=== PATIENT | female | born 2000 | race Caucasian/White ===

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

== ENCOUNTER 2021-03-08 17:59 | Emergency (ER) | payer OTHER, MEDICAID, SELFPAY ==
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
[2021-03-08 18:14] VITALS: BP 128/85; BP 174/84; PULSE 112; PULSE 120; RESP 18; TEMP 36.7; O2SAT 96; O2SAT 99; BMI 40.7
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
[2021-03-08] MEDS: Ketorolac Tromethamine 60 MG/2 ML VIAL IM (19:12)
[2021-03-08 20:35] VITALS: RESP 16
[2021-03-08 20:38] LABS: Appearance Urine CLEAR; Color Urine STRAW; Glucose Urine UA NEG (NEG); Leukocyte Esterase Urine NEG (NEG); Nitrite Urine NEG (NEG); PH 6.5 (5.0-8.0); Urine Blood NEG (NEG); Urine Ketones NEG (NEG); Urine Protein NEG (NEG-TRACE)
[2021-03-08 20:43] LABS: UPreg QC Valid YES; Urine Pregnancy NEGATIVE (NEGATIVE)
[2021-03-08 20:52] VITALS: BP 119/65; PULSE 90; RESP 18; TEMP 36.7; O2SAT 96
== END 2021-03-08 20:54 | disposition home or self-care (01) ==
PROVIDERS: Emergency Provider Emergency Medicine
DX: S39.012A Strain of muscle, fascia and tendon of lower back, initial encounter (principal); S16.1XXA Strain of muscle, fascia and tendon at neck level, initial encounter; M54.2 Cervicalgia; V43.52XA Car driver injured in collision with other type car in traffic accident, initial encounter; Y93.9 Activity, unspecified; Y92.410 Unspecified street and highway as the place of occurrence of the external cause; Y99.9 Unspecified external cause status; Z79.899 Other long term (current) drug therapy
CPT/HCPCS: 72040; 72100; 81003; 81025; 96372; 99284; J1885

== ENCOUNTER 2021-04-04 06:48 | Emergency (ER) | payer MEDICAID, SELFPAY ==
[2021-04-04 07:10] VITALS: BP 142/82; PULSE 102; RESP 18; TEMP 36.4; O2SAT 99; BMI 40.7
--- NOTE | 2021-04-04 08:05 | ED_ITS ---
HPI - URI/Sore Throat General Chief Complaint: General Medical Stated Complaint: flu like symptoms Time Seen by Provider: 04/04/21 08:02 Source: patient and spanish interpreter/translator Mode of arrival: ambulatory Limitations: no limitations History of Present Illness MD elicited complaint: other (had n/v/d over the weekend now lost her sense of taste and smell ) Pertinent past history: other (works at [employer] Onset (ago): day(s) (2) Consistency: constant and other (n/v/d resolved) Severity: mild Description of mucous: clear Able to tolerate fluids by mouth: Yes Exacerbating factors: nothing Relieving factors: nothing Context: sick contacts Associated symptoms: denies other symptoms Treatments prior to arrival: none Related Data Previous Rx's Medication Instructions Recorded cromolyn 4 % eye drops 1 drp OPHTHALMIC (EYE) QID #10 ml 10/18/20 naphazoline-hypromellose 0.03 1 drp OPHTHALMIC (EYE) QID PRN #15 10/18/20 %-0.5 % eye drops ml cyclobenzaprine 10 mg tablet 10 mg PO TID #10 tab 03/08/21 naproxen 500 mg tablet (Naprosyn) 500 mg PO BID #20 tab 03/08/21 ondansetron 4 mg disintegrating 4 mg PO Q8H PRN #20 tab 04/04/21 tablet Allergies Allergy/AdvReac Type Severity Reaction Status Date / Time bee pollen [BEE STINGS] Allergy Severe THROAT Unverified 02/19/20 19:26 CLOSES Review of Systems Review of Systems: Constitutional : No Fever, No Chills ENT/Mouth : No sore throat, No Rhinorrhea Eyes: No Eye Pain, No Swelling, No Redness Cardiovascular : No Chest Pain, No SOB Respiratory : No Cough, No Sputum, No Wheezing Gastrointestinal : No Nausea, No Vomiting, No Diarrhea (resolved) Genitourinary : No Dysuria, No Urinary Frequency, No Hematuria, Musculoskeletal : No joint pain, No Myalgias, No Joint Swelling Skin : No Skin Lesions, No rash Neuro : No Weakness, No Numbness, No Dizziness, No Headache PMFSH Past Medical History Attestation statement: The following information was validated with the patient. Medical History No known health problems Social History Social History (Updated 04/04/21 @ 08:54 by Margarette Arrington DO) Patient Tobacco Use Status: Never used Tobacco Use of substances other than those prescribed or required for medical reasons: No Advance Directives: No Physical Exam Vital Signs: Vital Signs: Last Vital Signs Temp 97.6 F 04/04/21 07:10 Pulse 102 H 04/04/21 07:10 Resp 18 04/04/21 07:10 BP 142/82 H 04/04/21 07:10 Pulse Ox 99 04/04/21 07:10 Body Mass Index 40.7 Appearance: Alert. Oriented X3. No acute distress. Eyes: Pupils equal, round and reactive to light. ENT: Pharynx normal. MMM Neck: Normal inspection. Neck supple. CVS: Normal heart rate and rhythm. Pulses normal. Respiratory: No respiratory distress. Breath sounds normal. Abdomen: Soft and nontender. Skin: Skin warm and dry. Normal skin color. Normal skin turgor. Extremities: No lower extremity edema. No calf ttp Neuro: Oriented X 3. No motor deficit. No sensory deficit. MDM - URI/Sore Throat MDM Narrative Medical decision making narrative: 20 yo female well hydrated here with resolved n/v/d over the weekend now lost her sense of taste and smell - has 2 vaccines but works at [employer] will test for COVID she looks well no signs of dehydration, clear lungs no other complaints at this time. Lab Data Labs: Lab Results 04/04/21 Range/Units 08:51 COVID-19 ([facility]) Negative (Negative) COVID-19 Clin Com See Note Discharge Plan Discharge Clinical Impression: Acute viral syndrome Patient Disposition: Home, Self-Care Instructions: Viral Syndrome (ED) Additional Instructions: return to ED for any worsening symptoms or concerns COVID NEGATIVE Prescriptions: New ondansetron 4 mg tablet,disintegrating 4 mg PO Q8H PRN (Reason: nausea and vomiting) Qty: 20 RF: 0 No Action naphazoline-hypromellose 0.03-0.5 % drops 1 drp ophthalmic (eye) QID PRN (Reason: eye irritation) Qty: 15 RF: 0 cromolyn 4 % drops 1 drp ophthalmic (eye) QID Qty: 10 RF: 0 cyclobenzaprine 10 mg tablet 10 mg PO TID Qty: 10 RF: 0 naproxen [Naprosyn] 500 mg tablet 500 mg PO BID Qty: 20 RF: 0 Stand Alone Forms: Work/School Release Print Language: Sri Lankan
[2021-04-04 09:11] LABS: COVID-19 Test Negative (Negative)
== END 2021-04-04 09:40 | disposition home or self-care (01) ==
PROVIDERS: Emergency Provider Emergency Medicine
DX: B34.9 Viral infection, unspecified (principal); Z20.822 Contact with and (suspected) exposure to COVID-19
CPT/HCPCS: 36415; 87635; 99283

== ENCOUNTER 2021-04-21 15:00 | Outpatient (RCR) | payer OTHER, MEDICAID, SELFPAY | END 2021-05-04 17:36 | disposition home or self-care (01) | LOC: HO.PT 15:00 | PROVIDERS: PCP Nurse Practitioner Family; Visit Provider Nurse Practitioner Family | DX: M62.838 Other muscle spasm (principal); M54.50 Low back pain, unspecified | CPT/HCPCS: 97110; 97140; 97161 ==

== ENCOUNTER 2021-05-12 15:37 | Emergency (ER) | payer MEDICAID, SELFPAY ==
[2021-05-12 16:31] VITALS: BP 160/88; PULSE 106; RESP 16; TEMP 36.4; O2SAT 98; BMI 40.7
--- NOTE | 2021-05-12 16:49 | ED.URI ---
HPI - URI/Sore Throat General Chief Complaint: Upper Respiratory Symptoms Stated Complaint: cough congestion Time Seen by Provider: 05/12/21 16:48 Source: patient and family Limitations: no limitations History of Present Illness HPI Narrative: Patient presents to the ER complaining of nasal congestion slight sore throat slight cough. Patient has been fully vaccinated for COVID-19 and has not had in the past. 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 Patient states she has company with her sister was also similar complaints. Patient denies tobacco history or history of diabetes or asthma. No recent travel history. Symptoms are [id number] slight cough is nonproductive. Worsening nasal congestion over the past 3 days. Related Data Previous Rx's Medication Instructions Recorded cromolyn 4 % eye drops 1 drp OPHTHALMIC (EYE) QID #10 ml 10/18/20 naphazoline-hypromellose 0.03 1 drp OPHTHALMIC (EYE) QID PRN #15 10/18/20 %-0.5 % eye drops ml cyclobenzaprine 10 mg tablet 10 mg PO TID #10 tab 03/08/21 naproxen 500 mg tablet (Naprosyn) 500 mg PO BID #20 tab 03/08/21 ondansetron 4 mg disintegrating 4 mg PO Q8H PRN #20 tab 04/04/21 tablet Allergies Allergy/AdvReac Type Severity Reaction Status Date / Time bee pollen [BEE STINGS] Allergy Severe THROAT Unverified 02/19/20 19:26 CLOSES Review of Systems Constitutional: Constitutional: Denies body ache(s), Denies chills, Denies fatigue, Denies fever(s) and Denies headache(s) Eyes: Eyes: Denies change in vision ENT: Denies headache(s), Reports nasal congestion, Reports nasal discharge and Reports sore throat Cardiovascular: Cardiovascular: Denies chest pain and Denies dyspnea Respiratory: Respiratory: Reports cough and Denies dyspnea Gastrointestinal: Gastrointestinal: Denies diarrhea, Denies nausea and Denies vomiting Musculoskeletal: Musculoskeletal: Denies back pain Neurologic: Denies headache(s) Endocrine: Endocrine: Denies fatigue PMFSH Past Medical History Attestation statement: The following information was validated with the patient. Medical History No known health problems Social History Social History Patient Tobacco Use Status: Never used Tobacco Advance Directives: No Advance Directives Information Provided: Yes Patient : No Physical Exam Vital Signs: Vital Signs: Last Vital Signs Temp 97.6 F 05/12/21 16:31 Pulse 106 H 05/12/21 16:31 Resp 16 05/12/21 16:31 BP 160/88 H 05/12/21 16:31 Pulse Ox 98 05/12/21 16:31 BMI result Body Mass Index 40.7 vital signs have been reviewed as normal and appeared to be correct. Blood pressure normal. Heart rate normal. Respiration rate normal. Temperature normal. Oxygen saturation normal. Appearance: Alert. Oriented X3. No acute distress. Head: Normal external exam. Normocephalic. Atraumatic. Eyes: PERRLA. EOMI. Conjunctiva and sclera normal. Eyelids normal. ENT: Pharynx normal. Uvula midline. Moist mucous membranes. No peritonsillar abscess Neck: Soft full range of motio CVS: Heart regular rate and rhythm no murmurs and rubs Respiratory: Breath sounds are clear to auscultation bilaterally. No accessory muscle use noted. Back: Full range of motion noted. Skin: Skin warm and dry. Normal skin color. No rashes ecchymosis noted Extremities: Moving all extremities patient is ambulatory Neuro: Oriented X 3. No motor deficit. No sensory deficit. Reflexes normal. Course Course Course Narrative: Viral URI COVID-19 Sinusitis Pharyngitis Vital signs are stable O2 sats 98% on room air COVID-19 swab obtained and pending 5:23 p.m. COVID-19 test is negative MDM - URI/Sore Throat Lab Data Labs: Lab Results 05/12/21 Range/Units 16:55 COVID-19 ([facility]) Negative (Negative) COVID-19 Clin Com See Note Discharge Plan Discharge Clinical Impression: Upper respiratory infection Patient Disposition: Home, Self-Care Instructions: Upper Respiratory Infection (ED) Additional Instructions: COVID-19 test is negative Increase fluids rest Return if symptoms worsen Prescriptions: No Action naphazoline-hypromellose 0.03-0.5 % drops 1 drp ophthalmic (eye) QID PRN (Reason: eye irritation) Qty: 15 RF: 0 cromolyn 4 % drops 1 drp ophthalmic (eye) QID Qty: 10 RF: 0 cyclobenzaprine 10 mg tablet 10 mg PO TID Qty: 10 RF: 0 naproxen [Naprosyn] 500 mg tablet 500 mg PO BID Qty: 20 RF: 0 ondansetron 4 mg tablet,disintegrating 4 mg PO Q8H PRN (Reason: nausea and vomiting) Qty: 20 RF: 0 Stand Alone Forms: Work/School Release
[2021-05-12 17:17] LABS: COVID-19 Test Negative (Negative)
== END 2021-05-12 18:05 | disposition home or self-care (01) ==
PROVIDERS: Physician Assistant; Emergency Provider Emergency Medicine
DX: J06.9 Acute upper respiratory infection, unspecified (principal); Z20.822 Contact with and (suspected) exposure to COVID-19
CPT/HCPCS: 36415; 87635; 99283

== ENCOUNTER 2021-08-01 07:44 | Emergency (ER) | payer MEDICAID, SELFPAY ==
[2021-08-01 07:48] VITALS: BP 118/85; PULSE 115; RESP 16; TEMP 36.9; O2SAT 98; BMI 40.7
--- NOTE | 2021-08-01 07:59 | ED_ITS ---
HPI - Abdominal Pain General Chief Complaint: Abdominal Pain Stated Complaint: abd pain Time Seen by Provider: 08/01/21 07:59 Source: patient and hourly sign language interpreter Mode of arrival: ambulatory Limitations: language barrier History of Present Illness HPI narrative: Patient is a 21 year old female presenting to the emergency department today with generalized body aches and nausea. Patient states that for the last 2 days, she has felt nauseous with generalized body aches. Patient states that her aunt has been sick but has now gotten better. Patient states that she is vaccinated against COVID-19. Patient denies any current dizziness, lightheadedness, abdominal pain, vomiting, fever, chills, blurry vision, double vision, loss of vision, chest pain, difficulty breathing, shortness of breath, back pain, night sweats, pain with urination, increased urinary frequency, increased urinary urgency, blood in her urine or stool, syncope or a near syncopal episode, recent trauma or falls, bowel incontinence, bladder incontinence, bowel retention, bladder retention, or any other complaints at this time. MD elicited complaint: other (feeling generally unwell) Pertinent past history: none Onset (ago): day(s) (2) Pain Consistency: intermittent Quality: dull Radiation: none Exacerbating factors: nothing Relieving factors: nothing Associated symptoms: nausea Related Data Previous Rx's Medication Instructions Recorded cromolyn 4 % eye drops 1 drp OPHTHALMIC (EYE) QID #10 ml 10/18/20 naphazoline-hypromellose 0.03 1 drp OPHTHALMIC (EYE) QID PRN #15 10/18/20 %-0.5 % eye drops ml cyclobenzaprine 10 mg tablet 10 mg PO TID #10 tab 03/08/21 naproxen 500 mg tablet (Naprosyn) 500 mg PO BID #20 tab 03/08/21 ondansetron 4 mg disintegrating 4 mg PO Q8H PRN #20 tab 04/04/21 tablet cephalexin 500 mg capsule 500 mg PO BID 7 Days #14 cap 08/01/21 Allergies Allergy/AdvReac Type Severity Reaction Status Date / Time bee pollen [BEE STINGS] Allergy Severe THROAT Unverified 02/19/20 19:26 CLOSES Review of Systems Constitutional: Reports no additional constitutional complaints, Reports body ache(s), Denies chills, Denies fever(s) and Denies night sweats Eyes: Reports no additional eye complaints, Denies blurry vision, Denies change in vision, Denies diplopia, Denies eye discharge, Denies loss of vision and Denies eye pain Denies dizziness Cardiovascular: Reports no additional cardiovascular complaints, Denies chest pain, Denies lightheadedness, Denies Loss of Consciousness and Denies dyspnea Respiratory: Reports no additional respiratory complaints and Denies dyspnea Gastrointestinal: Reports no additional gastrointestinal complaints, Denies abdominal pain, Denies melena, Denies hematochezia, Denies change in bowel habits, Denies change in stool character and Reports nausea Genitourinary: Denies hematuria, Denies urinary frequency, Denies dysuria, Denies urinary incontinence, Denies urinary hesitancy and Denies urinary urgency Musculoskeletal: Reports no additional musculoskeletal complaints, Denies numbness and Denies tingling Denies dizziness, Denies loss of vision, Denies numbness and Denies tingling Psychiatric: Reports no additional psychiatric complaints Endocrine: Reports no additional endocrine complaints Hematologic/Lymphatic: Reports no additional hematologic/lymphatic complaints Allergic/Immunologic: Reports no additional allergic/immunologic complaints PMFSH Past Medical History Attestation statement: The following information was validated with the patient. Source: old records reviewed Medical History No known health problems Social History Social History Patient Tobacco Use Status: Never used Tobacco Advance Directives: No Advance Directives Information Provided: Yes Physical Exam ED Vital Signs: Vital Signs - 24 hr 08/01/21 07:48 Temperature 98.4 F Pulse Rate 115 H Respiratory Rate 16 Blood Pressure 118/85 Pulse Oximetry 98 BMI result Body Mass Index 40.7 Const General: cooperative, no acute distress, alert and awake Nutritional Appearance: well nourished Orientation/consciousness: patient oriented x3 Limitations: no limitations HENMT Head: Yes normal to inspection and Yes atraumatic Ears: hearing grossly normal bilaterally and external ears normal General nose exam: Normal external nose present, no nasal discharge noted and no epistaxis Face and sinus: Yes normal facial exam, No abrasion and No laceration Mouth: Normal oral and palatal mucosa present, no drooling and no muffled voice Eyes General: appearance normal, both eyes and all related structures Periorbital: periorbital findings normal Eyelids: Yes eyelids normal Conjunctivae: conjunctivae normal Pupils: Equal, round and reactive pupils present EOM: EOMs intact bilaterally Neck Neck: Yes normal visual inspection, Yes full ROM and Yes no lymphadenopathy Chest Chest palpation & inspection: normal inspection of the chest Resp Effort & Inspection: normal respiratory effort and able to speak in complete sentences Auscultation: clear to auscultation bilaterally Cardio Rate: regular rate Rhythm: regular rhythm GI Inspection: Yes normal to inspection Neuro General: patient oriented x3 and moves all extremities Cranial nerves: Yes Equal, round and reactive pupils present Cognition (Neuro): normal cognition Motor exam (neuro): 5/5 motor strength present throughout Sensory Exam: Normal double simultaneous stimulation for sensation Coordination: [id number] test normal Extrem General: Yes normal to inspection, Yes full ROM and Yes capillary refill normal Psych Appearance: grossly normal Mental Status: mental status grossly normal Affect: normal affect Attitude: cooperative Thought process: Normal thought process present Thought content: Normal thought content present Insight: Good insight present (Psych) MDM - Abdominal Pain MDM Narrative Medical decision making narrative: Patient is a 21 year old female presenting to the emergency department today with generalized body aches and nausea. Patient's physical exam was unremarkable. Patient's blood work was unremarkable. Patient's urine showed a urinary tract infection. I explained my physical exam findings as well as all test results to the patient. I answered all questions asked by the patient. Patient received ODT Zofran which she stated helped her symptoms significantly. I stressed the importance of the patient taking her medication as prescribed. I stressed the importance of the patient following up with her primary care provider. I stressed the importance of the patient returning to the emergency department immediately if her symptoms were to worsen or if she were to develop any dizziness, shortness of breath, difficulty breathing, chest pain, blurry vision, loss of vision, nausea, vomiting, abdominal pain, fever, chills, back pain, or any other complaints. Patient verbalized agreement and understanding with this treatment plan and discharge. Differential Diagnosis Differential diagnosis narrative:: UTI, viral illness Medical Records Attestation: I reviewed the patient's medical records. Lab Data Attestation: I reviewed the patient's lab results. Result diagrams: 08/01/21 08:10 08/01/21 08:10 Labs: Lab Results 0208/01/21 08/01/21 Range/Units 08:10 08:10 08:10 WBC 5.2 (4.8-10.8) X10*3/uL RBC 4.71 (4.20-5.50) X10*6/uL Hgb 13.4 (12.0-16.0) g/dl Hct 41.3 (37.0-47.0) % MCV 87.7 (80.0-98.0) fL MCH 28.5 (27.0-33.0) pg MCHC 32.4 (31.0-35.0) g/dl RDW 12.7 (11.0-16.0) % Plt Count 362 (160-400) X10*3/uL MPV 9.2 L (9.4-12.3) fL Immature Gran % (Auto) 0.4 (0.0-0.4) % Neut % (Auto) 66.8 (45-73) % Lymph % (Auto) 23.5 (20-40) % [place] % (Auto) 8.3 (2-11) % Eos % (Auto) 0.8 (0-4) % Baso % (Auto) 0.2 (0-2) % Lymph # (Auto) 1.2 (1.2-4.9) X10*3/uL [place] # (Auto) 0.4 (0.1-1.2) X10*3/uL Eos # (Auto) 0.0 (0.0-0.4) X10*3/uL Baso # (Auto) 0.0 (0.0-0.2) X10*3/uL Abs Immat Gran (auto) 0.02 (0.00-0.03) X10*3/uL Absolute Neuts (auto) 3.4 (2.0-8.3) x10*3/uL Absolute Nucleated RBC 0.000 (0.0-0.012) X10*3/uL Nucleated RBC % (auto) 0.0 (0.0-0.2) /100WBC Sodium 137 (135-145) mmol/L Potassium 3.6 (3.3-5.1) mmol/L Chloride 105 (96-108) mmol/L Carbon Dioxide 22 (22-29) mmol/L Anion Gap 14 (12-20) BUN 9 (9-16) mg/dL Creatinine 0.77 (0.5-1.4) mg/dL Estim Creat Clear Calc 134.6 Estimated GFR > 60 Random Glucose 110 (60-115) mg/dL Calcium 9.4 (8.4-10.2) mg/dL Total Bilirubin 0.8 (0.0-1.0) mg/dL AST 16 (5-31) U/L ALT 35 H (0-31) U/L Alkaline Phosphatase 72 (39-117) U/L Total Protein 7.8 (6.5-8.0) g/dL Albumin 4.3 (3.5-5.0) g/dL Urine Color Urine Appearance Urine pH (5.0-8.0) Ur Specific [place] (1.005-1.025) Urine Protein (NEG-TRACE) MG/DL Urine Glucose (UA) (NEG) MG/DL Urine Ketones (NEG) MG/DL Urine Blood (NEG) Urine Nitrite (NEG) Ur Leukocyte Esterase (NEG) Urine RBC (0) /HPF Urine WBC (0-4) /HPF Ur Squamous Epith Cells /LPF Urine Bacteria /LPF Urine Test (NEGATIVE) COVID-19 ([place]) Negative (Negative) COVID-19 Clin Com See Note 08/01/21 08/01/21 Range/Units 08:26 08:26 WBC (4.8-10.8) X10*3/uL RBC (4.20-5.50) X10*6/uL Hgb (12.0-16.0) g/dl Hct (37.0-47.0) % MCV (80.0-98.0) fL MCH (27.0-33.0) pg MCHC (31.0-35.0) g/dl RDW (11.0-16.0) % Plt Count (160-400) X10*3/uL MPV (9.4-12.3) fL Immature Gran % (Auto) (0.0-0.4) % Neut % (Auto) (45-73) % Lymph % (Auto) (20-40) % [place] % (Auto) (2-11) % Eos % (Auto) (0-4) % Baso % (Auto) (0-2) % Lymph # (Auto) (1.2-4.9) X10*3/uL [place] # (Auto) (0.1-1.2) X10*3/uL Eos # (Auto) (0.0-0.4) X10*3/uL Baso # (Auto) (0.0-0.2) X10*3/uL Abs Immat Gran (auto) (0.00-0.03) X10*3/uL Absolute Neuts (auto) (2.0-8.3) x10*3/uL Absolute Nucleated RBC (0.0-0.012) X10*3/uL Nucleated RBC % (auto) (0.0-0.2) /100WBC Sodium (135-145) mmol/L Potassium (3.3-5.1) mmol/L Chloride (96-108) mmol/L Carbon Dioxide (22-29) mmol/L Anion Gap (12-20) BUN (9-16) mg/dL Creatinine (0.5-1.4) mg/dL Estim Creat Clear Calc Estimated GFR Random Glucose (60-115) mg/dL Calcium (8.4-10.2) mg/dL Total Bilirubin (0.0-1.0) mg/dL AST (5-31) U/L ALT (0-31) U/L Alkaline Phosphatase (39-117) U/L Total Protein (6.5-8.0) g/dL Albumin (3.5-5.0) g/dL Urine Color YELLOW Urine Appearance HAZY Urine pH 6.0 (5.0-8.0) Ur Specific [place] 1.025 (1.005-1.025) Urine Protein 1+ H (NEG-TRACE) MG/DL Urine Glucose (UA) NEG (NEG) MG/DL Urine Ketones 15 (NEG) MG/DL Urine Blood 3+ H (NEG) Urine Nitrite NEG (NEG) Ur Leukocyte Esterase TRACE H (NEG) Urine RBC 10-14 H (0) /HPF Urine WBC 1-4 (0-4) /HPF Ur Squamous Epith Cells 3+ /LPF Urine Bacteria TRACE /LPF Urine Test NEGATIVE (NEGATIVE) COVID-19 ([place]) (Negative) COVID-19 Clin Com Discharge Plan Discharge Clinical Impression: UTI (urinary tract infection) Patient Disposition: Home, Self-Care Instructions: Urinary Tract Infection in Women (DC) Additional Instructions: Follow up with your primary care provider. Return to the emergency department immediately if your symptoms worsen or if you develop any dizziness, shortness of breath, difficulty breathing, chest pain, blurry vision, loss of vision, nausea, vomiting, abdominal pain, fever, chills, back pain, or any other complaints. Prescriptions: New cephalexin 500 mg capsule 500 mg PO BID 7 Days Qty: 14 0RF No Action naphazoline-hypromellose 0.03-0.5 % drops 1 drp ophthalmic (eye) QID PRN (Reason: eye irritation) Qty: 15 0RF cromolyn 4 % drops 1 drp ophthalmic (eye) QID Qty: 10 0RF cyclobenzaprine 10 mg tablet 10 mg PO TID Qty: 10 0RF naproxen [Naprosyn] 500 mg tablet 500 mg PO BID Qty: 20 0RF ondansetron 4 mg tablet,disintegrating 4 mg PO Q8H PRN (Reason: nausea and vomiting) Qty: 20 0RF Stand Alone Forms: Work/School Release Print Language: Uzbek
[2021-08-01] MEDS: Ondansetron ODT 4 MG TAB.RAPDIS TRANSLINGU (08:13)
[2021-08-01 08:16] LABS: MANUAL DIFF FLAG NO
[2021-08-01 08:24] LABS: Basophils Percent Auto 0.2 % (0-2); Eosinophils Percent Auto 0.8 % (0-4); Hematocrit 41.3 % (37.0-47.0); Hemoglobin 13.4 g/dl (12.0-16.0); Imm Gran Abs Auto 0.02 X10*3/uL (0.00-0.03); Imm Gran Pct Auto 0.4 % (0.0-0.4); Lymphocytes Absolute Auto 1.2 X10*3/uL (1.2-4.9); Lymphocytes Percent Auto 23.5 % (20-40); Mean Corpuscular HGB Conc 32.4 g/dl (31.0-35.0); Mean Corpuscular Hemoglobin 28.5 pg (27.0-33.0); Mean Corpuscular Volume 87.7 fL (80.0-98.0); Mean Platelet Volume 9.2 fL (9.4-12.3); Monocytes Absolute Auto 0.4 X10*3/uL (0.1-1.2); Monocytes Percent Auto 8.3 % (2-11); Neutrophils Absolute Auto 3.4 x10*3/uL (2.0-8.3); Neutrophils Percent Auto 66.8 % (45-73); Platelet Count 362 X10*3/uL (160-400); Red Blood Count 4.71 X10*6/uL (4.20-5.50); Red Cell Distribution Width 12.7 % (11.0-16.0); White Blood Count 5.2 X10*3/uL (4.8-10.8)
[2021-08-01 08:32] LABS: Alanine Aminotransferase 35 U/L (0-31); Albumin Level 4.3 g/dL (3.5-5.0); Alkaline Phosphatase 72 U/L (39-117); Anion Gap 14 (12-20); Aspartate Amino Transferase 16 U/L (5-31); Bilirubin Total 0.8 mg/dL (0.0-1.0); Blood Urea Nitrogen 9 mg/dL (9-16); COVID-19 Test Negative (Negative); Calcium 9.4 mg/dL (8.4-10.2); Carbon Dioxide 22 mmol/L (22-29); Chloride 105 mmol/L (96-108); Creatinine Clr Calc Pharmacy 134.6; Estimated Glomerular Filt Rate > 60; Glucose Random 110 mg/dL (60-115); Potassium 3.6 mmol/L (3.3-5.1); Sodium 137 mmol/L (135-145); Total Protein 7.8 g/dL (6.5-8.0)
[2021-08-01 08:35] LABS: Appearance Urine HAZY; Color Urine YELLOW; Glucose Urine UA NEG (NEG); Leukocyte Esterase Urine TRACE (NEG); Nitrite Urine NEG (NEG); Specific Gravity - Urine 1.025 (1.005-1.025); UACC Culture Trigger YES; Urine Blood 3+ (NEG); Urine Ketones 15 MG/DL (NEG); Urine Protein 1+ MG/DL (NEG-TRACE)
[2021-08-01 08:37] LABS: UPreg QC Valid YES; Urine Pregnancy NEGATIVE (NEGATIVE)
[2021-08-01 08:46] LABS: Bacteria Urine TRACE /LPF; Squamous Epithelial Cell Urine 3+ /LPF
== END 2021-08-01 09:50 | disposition home or self-care (01) ==
PROVIDERS: Physician Assistant Medical; Emergency Provider Emergency Medicine
DX: N39.0 Urinary tract infection, site not specified (principal); Z20.822 Contact with and (suspected) exposure to COVID-19; M79.10 Myalgia, unspecified site; R11.0 Nausea
CPT/HCPCS: 36415; 80053; 81001; 81025; 85025; 87086; 87635; 99283

== ENCOUNTER 2021-10-03 09:36 | Emergency (ER) | payer MEDICAID, SELFPAY ==
--- NOTE | ~2021-10-03 | XR_ITS ---
EXAMINATION: XR CHEST CLINICAL INFORMATION: Chest pain, cough, back pain COMPARISON: None TECHNIQUE: 2 views of the chest were obtained. FINDINGS: No significant abnormality is noted involving the heart, lungs, mediastinum, bony thorax or soft tissues. XR/XR chest 2V IMPRESSION: Unremarkable examination.
[2021-10-03 10:02] VITALS: BP 127/78; PULSE 92; RESP 16; TEMP 36.6; O2SAT 100; BMI 38.0
--- NOTE | 2021-10-03 10:05 | ECG_ITS ---
Test Reason : cp Blood Pressure : / mmHG Vent. Rate : 087 BPM Atrial Rate : 087 BPM P-R Int : 134 ms QRS Dur : 078 ms QT Int : 354 ms P-R-T Axes : 008 012 -01 degrees QTc Int : 425 ms Normal sinus rhythm Poor R wave progression Abnormal ECG No previous ECGs available Referred By: Generic ED Physician Electronically Signed By:CATRINA JOSEPH MD
[2021-10-03 10:33] LABS: MANUAL DIFF FLAG NO
[2021-10-03 10:40] LABS: Basophils Percent Auto 0.1 % (0-2); Eosinophils Absolute Auto 0.1 X10*3/uL (0.0-0.4); Hemoglobin 12.4 g/dl (12.0-16.0); Imm Gran Abs Auto 0.04 X10*3/uL (0.00-0.03); Imm Gran Pct Auto 0.4 % (0.0-0.4); Lymphocytes Absolute Auto 2.2 X10*3/uL (1.2-4.9); Lymphocytes Percent Auto 20.7 % (20-40); Mean Corpuscular HGB Conc 32.6 g/dl (31.0-35.0); Mean Corpuscular Hemoglobin 28.4 pg (27.0-33.0); Mean Platelet Volume 9.2 fL (9.4-12.3); Monocytes Absolute Auto 0.4 X10*3/uL (0.1-1.2); Monocytes Percent Auto 4.1 % (2-11); Neutrophils Absolute Auto 7.7 x10*3/uL (2.0-8.3); Neutrophils Percent Auto 73.7 % (45-73); Platelet Count 385 X10*3/uL (160-400); Red Blood Count 4.37 X10*6/uL (4.20-5.50); Red Cell Distribution Width 13.2 % (11.0-16.0); White Blood Count 10.5 X10*3/uL (4.8-10.8)
[2021-10-03 10:57] LABS: Anion Gap 11 (12-20); Blood Urea Nitrogen 12 mg/dL (9-16); Calcium 9.8 mg/dL (8.4-10.2); Carbon Dioxide 24 mmol/L (22-29); Chloride 107 mmol/L (96-108); Creatinine Clr Calc Pharmacy 136.7; Estimated Glomerular Filt Rate > 60; Glucose Random 97 mg/dL (60-115); Influenza A Negative (Negative); Influenza B2 Negative (Negative); Potassium 4.4 mmol/L (3.3-5.1); Sodium 138 mmol/L (135-145)
[2021-10-03 11:00] LABS: Appearance Urine CLEAR; Color Urine YELLOW; Glucose Urine UA NEG (NEG); Leukocyte Esterase Urine NEG (NEG); Nitrite Urine NEG (NEG); PH 6.5 (5.0-8.0); Specific Gravity - Urine 1.015 (1.005-1.025); UACC Culture Trigger NO; UPreg QC Valid YES; Urine Blood 3+ (NEG); Urine Ketones NEG (NEG); Urine Pregnancy NEGATIVE (NEGATIVE); Urine Protein NEG (NEG-TRACE)
[2021-10-03 11:29] LABS: Squamous Epithelial Cell Urine 1+ /LPF
[2021-10-03 11:30] LABS: Bacteria Urine TRACE /LPF; WBC Urine 0 /HPF (0-4)
--- NOTE | 2021-10-03 16:01 | ED.GENADULT ---
HPI - General Adult General Chief complaint: Upper Respiratory Symptoms Stated complaint: chest and back pain Time Seen by Provider: 10/03/21 16:00 Source: patient and translator/interpreter Mode of arrival: ambulatory Limitations: no limitations History of Present Illness HPI narrative: 21 y/o female presents to the ER with 3 days of intermittent sharp, central chest pains and constant middle back pain. She reports this is associated with a mild dry cough. 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 She reports feeling like she was going to pass out, subsided quickly with rest. She was tested for COVID at work and was negative. She was sent to the ER for further evaluation. MD complaint: chest pain, back pain Onset (ago): day(s) (3) Location: chest and back Radiation: non-radiation Severity: moderate Severity scale (1-10): 5 Quality: sharp Pain Consistency: intermittent Relieving factors: rest Exacerbating factors: movement Associated symptoms: chest pain and cough Treatments prior to arrival: none Related Data Previous Rx's Medication Instructions Recorded cromolyn 4 % eye drops 1 drp OPHTHALMIC (EYE) QID #10 ml 10/18/20 naphazoline-hypromellose 0.03 1 drp OPHTHALMIC (EYE) QID PRN #15 10/18/20 %-0.5 % eye drops ml cyclobenzaprine 10 mg tablet 10 mg PO TID #10 tab 03/08/21 naproxen 500 mg tablet (Naprosyn) 500 mg PO BID #20 tab 03/08/21 ondansetron 4 mg disintegrating 4 mg PO Q8H PRN #20 tab 04/04/21 tablet cephalexin 500 mg capsule 500 mg PO BID 7 Days #14 cap 08/01/21 naproxen 500 mg tablet,delayed 500 mg PO BID PRN #14 tab 10/03/21 release Allergies Allergy/AdvReac Type Severity Reaction Status Date / Time bee pollen [BEE STINGS] Allergy Severe THROAT Unverified 02/19/20 19:26 CLOSES Review of Systems Review of Systems: Constitutional: No Fever, No Chills ENT/Mouth: No sore throat, No Rhinorrhea, No Swallowing Difficulty Eyes: No Eye Pain, No Swelling, No Redness Cardiovascular: + Chest Pain, No SOB, No Orthopnea, No Edema Respiratory: + Cough, No Sputum, No Wheezing, No dyspnea Gastrointestinal: No Nausea, No Vomiting, No Diarrhea, No abdominal Pain, No Hematochezia, No Melena Genitourinary: No Dysuria, No Urinary Frequency, No Hematuria Musculoskeletal: No joint pain, No Myalgias Skin: No Skin Lesions, No rash Neuro: No Weakness, No Numbness, + Dizziness, + Headache Psych: + Anxiety/Panic, No Depression Heme/Lymph: No Bruising, No Lymphadenopathy Endocrine: No Polyuria, No Polydipsia [facility] Past Medical History Medical History (Updated 10/03/21 @ 17:22 by QIAN White) Dysmenorrhea No known health problems Social History Social History Patient Tobacco Use Status: Never used Tobacco Advance Directives: No Advance Directives Information Provided: No Patient : No Physical Exam ED Vital Signs: Vital Signs - 24 hr 10/03/21 10:02 10/03/21 16:04 10/03/21 16:05 Temperature 98 F 98 F Pulse Rate 92 90 Respiratory Rate 16 18 Blood Pressure 127/78 103/59 L Pulse Oximetry 100 98 98 BMI result Body Mass Index 38.0 Appearance: Alert. Oriented X3. No acute distress. Eyes: Pupils equal, round and reactive to light. ENT: Pharynx normal. Neck: Normal inspection. Neck supple. CVS: Normal heart rate and rhythm. Pulses normal. Respiratory: No respiratory distress. Breath sounds normal. Abdomen: Soft and nontender. +BS x4 Skin: Skin warm and dry. Normal skin color. Normal skin turgor. No rashes. Extremities: No lower extremity edema. No calf tenderness. Neuro: Oriented X 3. No motor deficit. No sensory deficit. Course Course Course Narrative: 21 y/o female with no medical history presents to the ER with intermittent chest pains, back pain, and dry cough. VS are normal PERC negative. EKG with t-wave inversions in leads III and V1. Chest pain seems atypical but will add troponin and DDIMER to r/o PE. Will also check CXR. Reevaluation(s) Reevaluation #1: Workup is unremarkable. Troponin negative. DDIMER negative. CXR clear. Most likely musculoskeletal pain. Stable for d/c with NSAID PRN. Medical Decision Making Lab Data Result diagrams: 10/03/21 10:26 10/03/21 10:26 Labs: Lab Results 10/03/21 10/03/21 10/03/21 Range/Units 10:26 10: 10:26 WBC 10.5 (4.8-10.8) X10*3/uL RBC 4.37 (4.20-5.50) X10*6/uL Hgb 12.4 (12.0-16.0) g/dl Hct 38.0 (37.0-47.0) % MCV 87.0 (80.0-98.0) fL MCH 28.4 (27.0-33.0) pg MCHC 32.6 (31.0-35.0) g/dl RDW 13.2 (11.0-16.0) % Plt Count 385 (160-400) X10*3/uL MPV 9.2 L (9.4-12.3) fL Immature Gran % (Auto) 0.4 (0.0-0.4) % Neut % (Auto) 73.7 H (45-73) % Lymph % (Auto) 20.7 (20-40) % [place] % (Auto) 4.1 (2-11) % Eos % (Auto) 1.0 (0-4) % Baso % (Auto) 0.1 (0-2) % Lymph # (Auto) 2.2 (1.2-4.9) X10*3/uL [place] # (Auto) 0.4 (0.1-1.2) X10*3/uL Eos # (Auto) 0.1 (0.0-0.4) X10*3/uL Baso # (Auto) 0.0 (0.0-0.2) X10*3/uL Abs Immat Gran (auto) 0.04 H (0.00-0.03) X10*3/uL Absolute Neuts (auto) 7.7 (2.0-8.3) x10*3/uL Absolute Nucleated RBC 0.000 (0.0-0.012) X10*3/uL Nucleated RBC % (auto) 0.0 (0.0-0.2) /100WBC D-Dimer High Sensitivty NG/ML Sodium 138 (135-145) mmol/L Potassium 4.4 D (3.3-5.1) mmol/L Chloride 107 (96-108) mmol/L Carbon Dioxide 24 (22-29) mmol/L Anion Gap 11 L (12-20) BUN 12 (9-16) mg/dL Creatinine 0.73 (0.5-1.4) mg/dL Estim Creat Clear Calc 136.7 Estimated GFR > 60 Random Glucose 97 (60-115) mg/dL Calcium 9.8 (8.4-10.2) mg/dL Troponin I High Sens (<3.5-17.0) ng/L Urine Color Urine Appearance Urine pH (5.0-8.0) Ur Specific [place] (1.005-1.025) Urine Protein (NEG-TRACE) MG/DL Urine Glucose (UA) (NEG) MG/DL Urine Ketones (NEG) MG/DL Urine Blood (NEG) Urine Nitrite (NEG) Ur Leukocyte Esterase (NEG) Urine RBC (0) /HPF Urine WBC (0-4) /HPF Ur Squamous Epith Cells /LPF Urine Bacteria /LPF Urine Test (NEGATIVE) Influenza Type A (TORY) Negative (Negative) Influenza Type B (TORY) Negative (Negative) Influenza A & B Note See Note 10/03/21 10/03/21 10/03/21 Range/Units 10:26 10:26 10:26 WBC (4.8-10.8) X10*3/uL RBC (4.20-5.50) X10*6/uL Hgb (12.0-16.0) g/dl Hct (37.0-47.0) % MCV (80.0-98.0) fL MCH (27.0-33.0) pg MCHC (31.0-35.0) g/dl RDW (11.0-16.0) % Plt Count (160-400) X10*3/uL MPV (9.4-12.3) fL Immature Gran % (Auto) (0.0-0.4) % Neut % (Auto) (45-73) % Lymph % (Auto) (20-40) % [place] % (Auto) (2-11) % Eos % (Auto) (0-4) % Baso % (Auto) (0-2) % Lymph # (Auto) (1.2-4.9) X10*3/uL [place] # (Auto) (0.1-1.2) X10*3/uL Eos # (Auto) (0.0-0.4) X10*3/uL Baso # (Auto) (0.0-0.2) X10*3/uL Abs Immat Gran (auto) (0.00-0.03) X10*3/uL Absolute Neuts (auto) (2.0-8.3) x10*3/uL Absolute Nucleated RBC (0.0-0.012) X10*3/uL Nucleated RBC % (auto) (0.0-0.2) /100WBC D-Dimer High Sensitivty NG/ML Sodium (135-145) mmol/L Potassium (3.3-5.1) mmol/L Chloride (96-108) mmol/L Carbon Dioxide (22-29) mmol/L Anion Gap (12-20) BUN (9-16) mg/dL Creatinine (0.5-1.4) mg/dL Estim Creat Clear Calc Estimated GFR Random Glucose (60-115) mg/dL Calcium (8.4-10.2) mg/dL Troponin I High Sens < 3.5 (<3.5-17.0) ng/L Urine Color YELLOW Urine Appearance CLEAR Urine pH 6.5 (5.0-8.0) Ur Specific [place] 1.015 (1.005-1.025) Urine Protein NEG (NEG-TRACE) MG/DL Urine Glucose (UA) NEG (NEG) MG/DL Urine Ketones NEG (NEG) MG/DL Urine Blood 3+ H (NEG) Urine Nitrite NEG (NEG) Ur Leukocyte Esterase NEG (NEG) Urine RBC 15-29 H (0) /HPF Urine WBC 0 (0-4) /HPF Ur Squamous Epith Cells 1+ /LPF Urine Bacteria TRACE /LPF Urine Test NEGATIVE (NEGATIVE) Influenza Type A (TORY) (Negative) Influenza Type B (TORY) (Negative) Influenza A & B Note 10/03/21 Range/Units 16:38 WBC (4.8-10.8) X10*3/uL RBC (4.20-5.50) X10*6/uL Hgb (12.0-16.0) g/dl Hct (37.0-47.0) % MCV (80.0-98.0) fL MCH (27.0-33.0) pg MCHC (31.0-35.0) g/dl RDW (11.0-16.0) % Plt Count (160-400) X10*3/uL MPV (9.4-12.3) fL Immature Gran % (Auto) (0.0-0.4) % Neut % (Auto) (45-73) % Lymph % (Auto) (20-40) % [place] % (Auto) (2-11) % Eos % (Auto) (0-4) % Baso % (Auto) (0-2) % Lymph # (Auto) (1.2-4.9) X10*3/uL [place] # (Auto) (0.1-1.2) X10*3/uL Eos # (Auto) (0.0-0.4) X10*3/uL Baso # (Auto) (0.0-0.2) X10*3/uL Abs Immat Gran (auto) (0.00-0.03) X10*3/uL Absolute Neuts (auto) (2.0-8.3) x10*3/uL Absolute Nucleated RBC (0.0-0.012) X10*3/uL Nucleated RBC % (auto) (0.0-0.2) /100WBC D-Dimer High Sensitivty < 150 NG/ML Sodium (135-145) mmol/L Potassium (3.3-5.1) mmol/L Chloride (96-108) mmol/L Carbon Dioxide (22-29) mmol/L Anion Gap (12-20) BUN (9-16) mg/dL Creatinine (0.5-1.4) mg/dL Estim Creat Clear Calc Estimated GFR Random Glucose (60-115) mg/dL Calcium (8.4-10.2) mg/dL Troponin I High Sens (<3.5-17.0) ng/L Urine Color Urine Appearance Urine pH (5.0-8.0) Ur Specific [place] (1.005-1.025) Urine Protein (NEG-TRACE) MG/DL Urine Glucose (UA) (NEG) MG/DL Urine Ketones (NEG) MG/DL Urine Blood (NEG) Urine Nitrite (NEG) Ur Leukocyte Esterase (NEG) Urine RBC (0) /HPF Urine WBC (0-4) /HPF Ur Squamous Epith Cells /LPF Urine Bacteria /LPF Urine Test (NEGATIVE) Influenza Type A (TORY) (Negative) Influenza Type B (TORY) (Negative) Influenza A & B Note ECG Data Attestation: I personally reviewed and interpreted this ECG as follows: Prior ECG tracings: not available for review Interpretation: normal sinus rhythm, HR 87 bpm, T-wave inversions in leads III & V1. No ST segment elevations or depression Discharge Plan Discharge Clinical Impression: Atypical chest pain, Back pain Patient Disposition: Home, Self-Care Instructions: Back Pain (ED), Noncardiac Chest Pain (ED) Additional Instructions: Your lab workup today was normal. Your chest pain is not likely to be cardiac. Your chest x-ray was normal. You are negative for Influenza. Your pain is most likely muscular with possible viral illness given your cough. Recommend taking the prescribed medications as needed. Rest and stay hydrated. Follow up with your doctor as needed. If you develop new or worsening symptoms call 911 or come back to the ER for further evaluation. Prescriptions: New naproxen 500 mg tablet,delayed release (DR/EC) 500 mg PO BID PRN (Reason: pain) Qty: 14 0RF No Action naphazoline-hypromellose 0.03-0.5 % drops 1 drp ophthalmic (eye) QID PRN (Reason: eye irritation) Qty: 15 0RF cromolyn 4 % drops 1 drp ophthalmic (eye) QID Qty: 10 0RF cyclobenzaprine 10 mg tablet 10 mg PO TID Qty: 10 0RF naproxen [Naprosyn] 500 mg tablet 500 mg PO BID Qty: 20 0RF cephalexin 500 mg capsule 500 mg PO BID 7 Days Qty: 14 0RF ondansetron 4 mg tablet,disintegrating 4 mg PO Q8H PRN (Reason: nausea and vomiting) Qty: 20 0RF Stand Alone Forms: Work/School Release Print Language: Luxembourgish
[2021-10-03 16:04] VITALS: BP 103/59; PULSE 90; RESP 18; TEMP 36.6; O2SAT 98
[2021-10-03 16:05] VITALS: O2SAT 98
[2021-10-03 16:48] LABS: Troponin-I High Sensitivity < 3.5 ng/L (<3.5-17.0)
[2021-10-03 17:09] LABS: D Dimer High Sensitivity < 150 NG/ML
[2021-10-03 17:25] VITALS: BP 114/64; PULSE 74; RESP 18; TEMP 36.9; O2SAT 98
--- NOTE | 2021-10-03 17:25 | PC.NURSE ---
Pt alert and oriented x4, calm and cooperative. Pt states pain persists but has not worsened. Pt denies difficulty breathing. Pt ambultaing with steady gait. No IV in place. Vitals stable. Pt educated on dc by RN and stated an understanding.
== END 2021-10-03 17:29 | disposition home or self-care (01) ==
PROVIDERS: Physician Assistant; Emergency Provider Internal Medicine
DX: R07.89 Other chest pain (principal); R05.9 Cough, unspecified; M54.50 Low back pain, unspecified; Z79.899 Other long term (current) drug therapy; Z20.822 Contact with and (suspected) exposure to COVID-19
CPT/HCPCS: 36415; 71046; 80048; 81001; 81003; 81025; 84484; 85025; 85379; 87502; 93005; 99283; 99284

== ENCOUNTER 2022-09-30 22:14 | Emergency (ER) | payer MEDICAID, SELFPAY ==
[2022-09-30 22:23] VITALS: BP 144/85; PULSE 111; RESP 16; TEMP 36.9; O2SAT 97; BMI 40.7
[2022-09-30 22:39] VITALS: BP 122/85; PULSE 111; RESP 20; TEMP 36.8; O2SAT 98
--- NOTE | 2022-09-30 23:01 | ED.EYEPROB ---
HPI - Eye Problem General Chief complaint: Eye Problems Stated complaint: eye injury, blurry vision in left eye Time Seen by Provider: 09/30/22 22:48 Source: patient Mode of arrival: ambulatory Limitations: no limitations History of Present Illness HPI Narrative: Patient been having cold symptoms for last 2 -3 days and for the same time noticed watery discharge from both eyes with itching no pus discharge no fever no chills no injury to the eye no other family members sick Related Data Previous Rx's Medication Instructions Recorded cromolyn 4 % eye drops 1 drp ophthalmic (eye) QID #10 mL 10/18/20 naphazoline-hypromellose 0.03 1 drp ophthalmic (eye) QID PRN eye 10/18/20 %-0.5 % eye drops irritation #15 mL cyclobenzaprine 10 mg tablet 10 mg PO TID #10 tabs 03/08/21 naproxen 500 mg tablet (Naprosyn) 500 mg PO BID #20 tabs 03/08/21 ondansetron 4 mg disintegrating 4 mg PO Q8H PRN nausea and 04/04/21 tablet vomiting #20 tabs cephalexin 500 mg capsule 500 mg PO BID 7 days #14 caps 08/01/21 naproxen 500 mg tablet,delayed 500 mg PO BID PRN pain #14 tabs 10/03/21 release cetirizine 10 mg tablet (Zyrtec) 10 mg PO DAILY #14 tabs 09/30/22 olopatadine 0.1 % eye drops 1 drp ophthalmic (eye) BID #5 mL 09/30/22 (Pataday Twice Daily Relief) Allergies Allergy/AdvReac Type Severity Reaction Status Date / Time bee pollen [BEE STINGS] Allergy Severe THROAT Unverified 02/19/20 19:26 CLOSES Review of Systems Review of Systems: Yes all other systems are reviewed and are negative PMFSH Past Medical History Medical History Dysmenorrhea No known health problems Social History Social History Alcohol intake: never Patient Tobacco Use Status: Never used Tobacco Smoked in Last 30 Days: No Use of substances other than those prescribed or required for medical reasons: No Advance Directives: No Advance Directives Information Provided: No Physical Exam Vital Signs: Vital Signs: Last Vital Signs Temp 98.2 F 09/30/22 22:39 Pulse 111 H 09/30/22 22:39 Resp 20 09/30/22 22:39 BP 122/85 09/30/22 22:39 Pulse Ox 98 09/30/22 22:39 O2 Del Method Room Air 09/30/22 22:39 BMI result Body Mass Index 40.7 Appearance: Alert. Oriented X3. No acute distress. Eyes: Bilateral injected palpebral conjunctiva, watery discharge no exudate cornea normal anterior chamber normal ENT: Pharynx normal. Oral Mucosa moist clear rhinorrhea Neck: Normal inspection. Neck supple. CVS: Normal heart rate and rhythm. Pulses normal. Respiratory: No respiratory distress. Equal air entry bilateral, Abdomen: Soft and nontender. Bowel sounds are present, no mass palpable, no CVA tenderness Skin: Skin warm and dry. Normal skin color. Normal skin turgor. Neuro: Oriented X 3. Medications Administered Discontinued Medications Generic Name Dose Route Start Last Admin Trade Name Freq PRN Reason Stop Dose Admin Diphenhydramine HCl 50 mg 09/30/22 22:52 09/30/22 23:08 Diphenhydramine Hcl 25 Mg Capsule PO 09/30/22 22:53 50 mg ONCE ONE Administration Medical Decision Making Medical Decision Making MDM Narrative: Patient clinically with allergic conjunctivitis discharge patient home on Zyrtec and [place] eyedrops Discharge Plan Discharge Clinical Impression: Acute allergic conjunctivitis Patient Disposition: Home, Self-Care Instructions: Conjunctivitis (ED) Additional Instructions: Likely have allergic conjunctivitis Eyedrops as Advised Take Zyrtec 10 mg daily Prescriptions: New olopatadine [Pataday Twice Daily Relief] 0.1 % drops 1 drp ophthalmic (eye) BID Qty: 5 0RF Rx Instructions: separate doses by at least 6-8 hours cetirizine [Zyrtec] 10 mg tablet 10 mg PO DAILY Qty: 14 0RF No Action naphazoline-hypromellose 0.03-0.5 % drops 1 drp ophthalmic (eye) QID PRN (Reason: eye irritation) Qty: 15 0RF cromolyn 4 % drops 1 drp ophthalmic (eye) QID Qty: 10 0RF cyclobenzaprine 10 mg tablet 10 mg PO TID Qty: 10 0RF naproxen [Naprosyn] 500 mg tablet 500 mg PO BID Qty: 20 0RF cephalexin 500 mg capsule 500 mg PO BID 7 Days Qty: 14 0RF naproxen 500 mg tablet,delayed release (DR/EC) 500 mg PO BID PRN (Reason: pain) Qty: 14 0RF ondansetron 4 mg tablet,disintegrating 4 mg PO Q8H PRN (Reason: nausea and vomiting) Qty: 20 0RF Stand Alone Forms: Work/School Release Interventions: ED Discharge Assessment Last Done: 09/30/22 23:08 Discharge Date/Time: 09/30/22 23:10
[2022-09-30] MEDS: diphenhydrAMINE HCL 25 MG CAPSULE 50 MG PO (23:08)
== END 2022-09-30 23:10 | disposition home or self-care (01) ==
PROVIDERS: Emergency Provider Internal Medicine
DX: H10.13 Acute atopic conjunctivitis, bilateral (principal)
CPT/HCPCS: 99283; 99284

== ENCOUNTER 2022-10-06 23:57 | Emergency (ER) | payer MEDICAID, SELFPAY ==
[2022-10-06 23:59] VITALS: BP 142/82; PULSE 100; RESP 18; TEMP 36.8; O2SAT 98; BMI 42.5
--- NOTE | 2022-10-07 00:30 | ED.EYEPROB ---
HPI - Eye Problem General Chief complaint: Eye Problems Stated complaint: Right eye swollen Time Seen by Provider: 10/07/22 00:16 Source: patient Mode of arrival: ambulatory Limitations: no limitations History of Present Illness chief complaint: eye pain and eye redness Onset (ago): week(s) (1) Onset description: gradual Duration: intermittent Location: right eye Eye Symptoms: burning, redness, pain and discharge Mechanism: none Severity: moderate If Pain, Quality: burning Associated symptoms: none Treatments Prior to Arrival: other (Prescription eyedrops) Related Data Previous Rx's Medication Instructions Recorded cromolyn 4 % eye drops 1 drp ophthalmic (eye) QID #10 mL 10/18/20 naphazoline-hypromellose 0.03 1 drp ophthalmic (eye) QID PRN eye 10/18/20 %-0.5 % eye drops irritation #15 mL cyclobenzaprine 10 mg tablet 10 mg PO TID #10 tabs 03/08/21 naproxen 500 mg tablet (Naprosyn) 500 mg PO BID #20 tabs 03/08/21 ondansetron 4 mg disintegrating 4 mg PO Q8H PRN nausea and 04/04/21 tablet vomiting #20 tabs cephalexin 500 mg capsule 500 mg PO BID 7 days #14 caps 08/01/21 naproxen 500 mg tablet,delayed 500 mg PO BID PRN pain #14 tabs 10/03/21 release cetirizine 10 mg tablet (Zyrtec) 10 mg PO DAILY #14 tabs 09/30/22 olopatadine 0.1 % eye drops 1 drp ophthalmic (eye) BID #5 mL 09/30/22 (Pataday Twice Daily Relief) polymyxin B sulfate 10,000 1 drp ophthalmic (eye) QID 7 days 10/07/22 unit-trimethoprim 1 mg/mL eye #10 mL drops (Polytrim) Allergies Allergy/AdvReac Type Severity Reaction Status Date / Time bee pollen [BEE STINGS] Allergy Severe THROAT Unverified 02/19/20 19:26 CLOSES [facility] Past Medical History Medical History Dysmenorrhea No known health problems Social History Social History Alcohol intake: never Patient Tobacco Use Status: Never used Tobacco Advance Directives: No Advance Directives Information Provided: Yes Physical Exam Vital Signs: Vital Signs: Last Vital Signs Temp 98.3 F 10/06/22 23:59 Pulse 100 10/06/22 23:59 Resp 18 10/06/22 23:59 BP 142/82 H 10/06/22 23:59 Pulse Ox 98 10/06/22 23:59 O2 Del Method Room Air 10/06/22 23:59 BMI result Body Mass Index 42.5 GEN: Well developed, no acute distress, alert, oriented HEENT: Normocephalic, atraumatic, normal external ears, nose appears normal Eyes: Right conjunctival injection, tearing discharge, slight edematous changes to upper lower eyelids, no foreign body, no stye hordeolum or chalazion Neck: Supple, no lymphadenopathy Respiratory: Talks in complete sentences, no respiratory distress Extremities: No clubbing cyanosis or edema Neurologic: No focal neurologic deficits, cranial nerves 2-12 intact, gait normal Skin: No rash Course Course Course Narrative: Patient presents with acute and. This could certainly be bacterial or viral. She has been on allergy eyedrops which I do not believe would be helpful since it is unilateral. If the was allergic conjunctivitis I would suspect it would be bilateral. I will provide patient with prescription for Polytrim to take during the day and she continue the erythromycin ointment at night. I have referred Ophthalmology Medical Decision Making Medical Decision Making MDM Narrative: Conjunctiitis, bacterial v viral, add polytrim gtt during day, continue erythromycin at night Prescription Management I considered prescription management with: Antibiotic Discharge Plan Discharge Clinical Impression: Corneal abrasion Instructions: Corneal Abrasion (ED) Additional Instructions: Use polytrim during the day Use erythromycin ointment at night Prescriptions: New polymyxin B sulf-trimethoprim [Polytrim] 10,000 unit- 1 mg/mL drops 1 drp ophthalmic (eye) QID 7 Days Qty: 10 0RF Rx Instructions: while awake; do not exceed 6 doses in 24 hours No Action naphazoline-hypromellose 0.03-0.5 % drops 1 drp ophthalmic (eye) QID PRN (Reason: eye irritation) Qty: 15 0RF cromolyn 4 % drops 1 drp ophthalmic (eye) QID Qty: 10 0RF cyclobenzaprine 10 mg tablet 10 mg PO TID Qty: 10 0RF naproxen [Naprosyn] 500 mg tablet 500 mg PO BID Qty: 20 0RF cephalexin 500 mg capsule 500 mg PO BID 7 Days Qty: 14 0RF naproxen 500 mg tablet,delayed release (DR/EC) 500 mg PO BID PRN (Reason: pain) Qty: 14 0RF ondansetron 4 mg tablet,disintegrating 4 mg PO Q8H PRN (Reason: nausea and vomiting) Qty: 20 0RF olopatadine [Pataday Twice Daily Relief] 0.1 % drops 1 drp ophthalmic (eye) BID Qty: 5 0RF Rx Instructions: separate doses by at least 6-8 hours cetirizine [Zyrtec] 10 mg tablet 10 mg PO DAILY Qty: 14 0RF Referrals: Jorge Solano [Physician] - 5 days
== END 2022-10-07 00:37 | disposition home or self-care (01) ==
PROVIDERS: Emergency Provider Emergency Medicine
DX: H57.11 Ocular pain, right eye (principal); S05.01XD Injury of conjunctiva and corneal abrasion without foreign body, right eye, subsequent encounter; X58.XXXD Exposure to other specified factors, subsequent encounter
CPT/HCPCS: 99282; 99283

== ENCOUNTER 2023-01-31 09:24 | Outpatient (REF) | payer MEDICAID, SELFPAY ==
[2023-01-31 11:32] LABS: MANUAL DIFF FLAG NO
[2023-01-31 11:51] LABS: Basophils Percent Auto 0.3 % (0-2); Eosinophils Absolute Auto 0.1 X10*3/uL (0.0-0.4); Eosinophils Percent Auto 0.9 % (0-4); Hematocrit 38.5 % (37.0-47.0); Hemoglobin 12.3 g/dl (12.0-16.0); Imm Gran Abs Auto 0.04 X10*3/uL (0.00-0.03); Imm Gran Pct Auto 0.4 % (0.0-0.4); Lymphocytes Absolute Auto 2.1 X10*3/uL (1.2-4.9); Lymphocytes Percent Auto 21.9 % (20-40); Mean Corpuscular HGB Conc 31.9 g/dl (31.0-35.0); Mean Corpuscular Hemoglobin 28.5 pg (27.0-33.0); Mean Corpuscular Volume 89.3 fL (80.0-98.0); Mean Platelet Volume 9.4 fL (9.4-12.3); Monocytes Absolute Auto 0.4 X10*3/uL (0.1-1.2); Monocytes Percent Auto 4.4 % (2-11); Neutrophils Absolute Auto 6.9 x10*3/uL (2.0-8.3); Neutrophils Percent Auto 72.1 % (45-73); Platelet Count 442 X10*3/uL (160-400); Red Blood Count 4.31 X10*6/uL (4.20-5.50); White Blood Count 9.6 X10*3/uL (4.8-10.8)
[2023-01-31 12:13] LABS: Alanine Aminotransferase 22 U/L (0-31); Albumin Level 4.2 g/dL (3.5-5.0); Alkaline Phosphatase 70 U/L (39-117); Anion Gap 13 (12-20); Aspartate Amino Transferase 15 U/L (5-31); Bilirubin Total 0.4 mg/dL (0.0-1.0); Blood Urea Nitrogen 12 mg/dL (9-16); Calcium 9.3 mg/dL (8.4-10.2); Carbon Dioxide 26 mmol/L (22-29); Chloride 105 mmol/L (96-108); Cholesterol 164 mg/dL (<200); Estimated Glomerular Filt Rate > 60; Glucose Random 104 mg/dL (60-115); HDL Cholesterol 45 mg/dL (>40); LDL Cholesterol Calculated 110 mg/dL (<100); Potassium 4.2 mmol/L (3.3-5.1); Sodium 140 mmol/L (135-145); Total Protein 8.1 g/dL (6.5-8.0); Triglycerides 49 mg/dL (<150)
[2023-01-31 12:25] LABS: HBS Num1 3.46 mIU/mL (0-7.99); HBsAGNum1 0.35 S/CO (0.00-0.99); HIV AB/AG Nonreactive (Nonreactive); HIV Num 1 0.09 S/CO (0.00-0.99); Hepatitis B Surface Antigen Negative (Negative); ~HepC Num1 0.07 S/CO (0.00-0.79); ~Hepatitis B Surface Antibody NONREACTIVE (Nonreactive); ~Hepatitis C Antibody Nonreactive (Nonreactive)
[2023-01-31 12:45] LABS: Syphilis Screen Nonreactive (Nonreactive)
[2023-01-31 15:14] LABS: CT PCR NOT DETECTED (Not Detect.); NG PCR NOT DETECTED (Not Detect.)
[2023-02-02 23:18] LABS: TS Negative Control Passed; TS Panel A 0; TS Panel B 0; TS Positive Control Passed; TSpotTB Negative (Negative)
== END 2023-01-31 09:25 | disposition home or self-care (01) ==
LOC: HO.HHCL 09:24
PROVIDERS: Visit Provider Internal Medicine Geriatric Medicine
DX: Z00.00 Encounter for general adult medical examination without abnormal findings (principal); Z11.4 Encounter for screening for human immunodeficiency virus [HIV]; Z11.3 Encounter for screening for infections with a predominantly sexual mode of transmission; Z11.1 Encounter for screening for respiratory tuberculosis; Z13.1 Encounter for screening for diabetes mellitus; Z13.220 Encounter for screening for lipoid disorders
CPT/HCPCS: 0353U; 80053; 80061; 85025; 86481; 86706; 86780; 86803; 87340; 87389

== ENCOUNTER 2023-07-13 10:13 | Outpatient (REF) | payer MEDICAID, SELFPAY ==
[2023-07-13 12:12] LABS: HCG Quantitative 11110 mIU/mL
== END 2023-07-13 10:14 | disposition home or self-care (01) ==
LOC: HO.HHCL 10:13
PROVIDERS: Visit Provider Emergency Medicine
DX: Z34.90 Encounter for supervision of normal pregnancy, unspecified, unspecified trimester (principal)
CPT/HCPCS: 36415; 84702

== ENCOUNTER 2023-07-16 04:24 | Emergency (ER) | payer MEDICAID, SELFPAY ==
--- NOTE | ~2023-07-16 | US_ITS ---
EXAMINATION: US OBSTETRICAL ULTRASOUND CLINICAL INFORMATION: Vaginal bleeding. 6 weeks of . COMPARISON: None available. TECHNIQUE: Sonographic imaging of the pelvis is performed using transabdominal and transvaginal transducers. FINDINGS: On the transabdominal images, the anteflexed uterus measures approximately 8 x 3.7 x 3.7 cm (cervix to fundus x AP x transverse dimension). The myometrial echotexture is normal. No uterine mass. The cervix is approximately 2.8 cm in length and has a 0.5 cm nabothian cyst. Within the endometrium, there is a well-formed gestational sac with surrounding decidual reaction. pole has a crown-rump length of 0.47 cm (6 weeks, 2 days). Estimated date of delivery of 03/08/2014. heart rate is 118 bpm. 0.4 cm yolk sac is present. No evidence of subchorionic hemorrhage. The right ovary is 4 x 2 x 2.2 cm and left ovary 2.6 x 1.5 x 1.9 cm. Color Doppler images with spectral waveforms show presence of normal arterial and venous flow within the ovaries. Negligible free fluid within the cul-de-sac. US/US OB pelvic and transvaginal IMPRESSION: * Single viable intrauterine gestation. The AUA is 6 weeks, 2 days and estimated date of delivery 03/08/2024. * No evidence of subchorionic hemorrhage. * The ovaries are normal.
--- NOTE | 2023-07-16 04:31 | ED_ITS ---
HPI - Female Genitourinary General Chief complaint: OB Stated complaint: vaginal bleeding Time Seen by Provider: 07/16/23 04:30 Source: patient Mode of arrival: ambulatory Limitations: no limitations History of Present Illness HPI Narrative: Patient is 6 weeks primi was doing okay for last 6 weeks woke up from sleep tonight with lower abdominal cramping went to the bathroom noticed small amount of bright red blood no blood clot no urinary complaints no fever or chills Related Data Previous Rx's Medication Instructions Recorded cromolyn 4 % eye drops 1 drp ophthalmic (eye) QID #10 mL 10/18/20 naphazoline-hypromellose 0.03 1 drp ophthalmic (eye) QID PRN eye 10/18/20 %-0.5 % eye drops irritation #15 mL cyclobenzaprine 10 mg tablet 10 mg PO TID #10 tabs 03/08/21 naproxen 500 mg tablet (Naprosyn) 500 mg PO BID #20 tabs 03/08/21 ondansetron 4 mg disintegrating 4 mg PO Q8H PRN nausea and 04/04/21 tablet vomiting #20 tabs cephalexin 500 mg capsule 500 mg PO BID 7 days #14 caps 08/01/21 naproxen 500 mg tablet,delayed 500 mg PO BID PRN pain #14 tabs 10/03/21 release cetirizine 10 mg tablet (Zyrtec) 10 mg PO DAILY #14 tabs 09/30/22 olopatadine 0.1 % eye drops 1 drp ophthalmic (eye) BID #5 mL 09/30/22 (Pataday Twice Daily Relief) polymyxin B sulfate 10,000 1 drp ophthalmic (eye) QID 7 days 10/07/22 unit-trimethoprim 1 mg/mL eye #10 mL drops (Polytrim) Allergies Allergy/AdvReac Type Severity Reaction Status Date / Time bee pollen [BEE STINGS] Allergy Severe THROAT Unverified 02/19/20 19:26 CLOSES Review of Systems 2 Review of Systems: Yes all other systems are reviewed and are negative PMFSH Past Medical History Medical History Dysmenorrhea No known health problems Social History Social History Alcohol intake: never Patient Tobacco Use Status: Never used Tobacco Advance Directives: No Advance Directives Information Provided: No Physical Exam 2 Vital Signs: Vital Signs: Last Vital Signs Temp 98.3 F 07/16/23 04:33 Pulse 111 H 07/16/23 04:33 Resp 16 07/16/23 04:33 BP 127/70 07/16/23 04:33 Pulse Ox 98 07/16/23 04:33 O2 Del Method Room Air 07/16/23 04:33 BMI result Body Mass Index 42.6 Appearance: Alert. Oriented X3. No acute distress. Eyes: No pallor or icterus ENT: Pharynx normal. Oral Mucosa moist Neck: Normal inspection. Neck supple. CVS: Normal heart rate and rhythm. Pulses normal. Respiratory: No respiratory distress. Equal air entry bilateral, no wheezing/rales/rhonchi Abdomen: Soft mild suprapubic discomfort Bowel sounds are present, Skin: Skin warm and dry. Normal skin color. Normal skin turgor. Extremities: No lower extremity edema. No calf tenderness Neuro: Oriented X 3. Medical Decision Making Medical Decision Making [facility] Narrative: Patient with IUP 6 weeks 2 days heart tone 118 beats per minute no significant bleeding and vaginal will discharge patient home Differential Diagnosis Differential Diagnoses: The differential diagnosis associated with the presentation includes Miscarriage/ectopic Lab Data [facility] Lab Attestation statement: I reviewed the patient's lab results. 07/16/23 04:50 07/16/23 04:50 Labs: Lab Results 07/16/23 Range/Units 04:50 WBC 14.7 H (4.8-10.8) X10*3/uL RBC 4.26 (4.20-5.50) X10*6/uL Hgb 12.5 (12.0-16.0) g/dl Hct 37.2 (37.0-47.0) % MCV 87.3 (80.0-98.0) fL MCH 29.3 (27.0-33.0) pg MCHC 33.6 (31.0-35.0) g/dl RDW 13.6 (11.0-16.0) % Plt Count 401 H (160-400) X10*3/uL MPV 9.1 L (9.4-12.3) fL Immature Gran % (Auto) 0.4 (0.0-0.4) % Neut % (Auto) 79.6 H (45-73) % Lymph % (Auto) 14.8 L (20-40) % [place] % (Auto) 4.4 (2-11) % Eos % (Auto) 0.5 (0-4) % Baso % (Auto) 0.3 (0-2) % Lymph # (Auto) 2.2 (1.2-4.9) X10*3/uL [place] # (Auto) 0.7 (0.1-1.2) X10*3/uL Eos # (Auto) 0.1 (0.0-0.4) X10*3/uL Baso # (Auto) 0.0 (0.0-0.2) X10*3/uL Abs Immat Gran (auto) 0.06 H (0.00-0.03) X10*3/uL Absolute Neuts (auto) 11.7 H (2.0-8.3) x10*3/uL Absolute Nucleated RBC 0.000 (0.0-0.012) X10*3/uL Nucleated RBC % (auto) 0.0 (0.0-0.2) /100WBC Sodium 140 (135-145) mmol/L Potassium 4.5 (3.3-5.1) mmol/L Chloride 109 H (96-108) mmol/L Carbon Dioxide 21 L (22-29) mmol/L Anion Gap 15 (12-20) BUN 12 (9-16) mg/dL Creatinine 0.76 (0.5-1.4) mg/dL Estim Creat Clear Calc 137.6 Estimated GFR > 60 Random Glucose 132 H (60-115) mg/dL Calcium 8.9 (8.4-10.2) mg/dL Beta HCG, Quant 89986 mIU/mL Blood Type B Positive Discharge Plan Discharge Clinical Impression: Threatened Patient Disposition: Home, Self-Care Instructions: Threatened Miscarriage (ED) Additional Instructions: Your blood type is B positive At this time there is no evidence of miscarriage Follow-up with OBG Report to the ER if worsening of pain/bleeding Prescriptions: No Action naphazoline-hypromellose 0.03-0.5 % drops 1 drp ophthalmic (eye) QID PRN (Reason: eye irritation) Qty: 15 0RF cromolyn 4 % drops 1 drp ophthalmic (eye) QID Qty: 10 0RF cyclobenzaprine 10 mg tablet 10 mg PO TID Qty: 10 0RF naproxen [Naprosyn] 500 mg tablet 500 mg PO BID Qty: 20 0RF cephalexin 500 mg capsule 500 mg PO BID 7 Days Qty: 14 0RF naproxen 500 mg tablet,delayed release (DR/EC) 500 mg PO BID PRN (Reason: pain) Qty: 14 0RF ondansetron 4 mg tablet,disintegrating 4 mg PO Q8H PRN (Reason: nausea and vomiting) Qty: 20 0RF olopatadine [Pataday Twice Daily Relief] 0.1 % drops 1 drp ophthalmic (eye) BID Qty: 5 0RF Rx Instructions: separate doses by at least 6-8 hours cetirizine [Zyrtec] 10 mg tablet 10 mg PO DAILY Qty: 14 0RF polymyxin B sulf-trimethoprim [Polytrim] 10,000 unit- 1 mg/mL drops 1 drp ophthalmic (eye) QID 7 Days Qty: 10 0RF Rx Instructions: while awake; do not exceed 6 doses in 24 hours
[2023-07-16 04:33] VITALS: BP 127/70; PULSE 111; RESP 16; TEMP 36.8; O2SAT 98; BMI 42.6
[2023-07-16 04:56] LABS: Basophils Percent Auto 0.3 % (0-2); Eosinophils Absolute Auto 0.1 X10*3/uL (0.0-0.4); Eosinophils Percent Auto 0.5 % (0-4); Hematocrit 37.2 % (37.0-47.0); Hemoglobin 12.5 g/dl (12.0-16.0); Imm Gran Abs Auto 0.06 X10*3/uL (0.00-0.03); Imm Gran Pct Auto 0.4 % (0.0-0.4); Lymphocytes Absolute Auto 2.2 X10*3/uL (1.2-4.9); Lymphocytes Percent Auto 14.8 % (20-40); MANUAL DIFF FLAG NO; Mean Corpuscular HGB Conc 33.6 g/dl (31.0-35.0); Mean Corpuscular Hemoglobin 29.3 pg (27.0-33.0); Mean Corpuscular Volume 87.3 fL (80.0-98.0); Mean Platelet Volume 9.1 fL (9.4-12.3); Monocytes Absolute Auto 0.7 X10*3/uL (0.1-1.2); Monocytes Percent Auto 4.4 % (2-11); Neutrophils Absolute Auto 11.7 x10*3/uL (2.0-8.3); Neutrophils Percent Auto 79.6 % (45-73); Platelet Count 401 X10*3/uL (160-400); Red Blood Count 4.26 X10*6/uL (4.20-5.50); Red Cell Distribution Width 13.6 % (11.0-16.0); White Blood Count 14.7 X10*3/uL (4.8-10.8)
[2023-07-16 05:14] LABS: Anion Gap 15 (12-20); Blood Urea Nitrogen 12 mg/dL (9-16); Calcium 8.9 mg/dL (8.4-10.2); Carbon Dioxide 21 mmol/L (22-29); Chloride 109 mmol/L (96-108); Creatinine Clr Calc Pharmacy 137.6; Estimated Glomerular Filt Rate > 60; Glucose Random 132 mg/dL (60-115); Potassium 4.5 mmol/L (3.3-5.1); Sodium 140 mmol/L (135-145)
[2023-07-16 05:35] LABS: HCG Quantitative 22911 mIU/mL
== END 2023-07-16 09:00 | disposition home or self-care (01) ==
PROVIDERS: Internal Medicine; Emergency Provider Emergency Medicine
DX: O20.0 Threatened abortion (principal); R10.2 Pelvic and perineal pain; Z79.899 Other long term (current) drug therapy; Z3A.01 Less than 8 weeks gestation of pregnancy
CPT/HCPCS: 36415; 76801; 76817; 80048; 84702; 85025; 86900; 86901; 99283; 99284

== ENCOUNTER 2024-02-20 19:58 | Emergency (ER) | payer MEDICAID, SELFPAY ==
--- NOTE | 2024-02-20 20:05 | ECG_ITS ---
Test Reason : CHEST PAIN Blood Pressure : / mmHG Vent. Rate : 095 BPM Atrial Rate : 095 BPM P-R Int : 140 ms QRS Dur : 084 ms QT Int : 348 ms P-R-T Axes : 014 022 015 degrees QTc Int : 437 ms Normal sinus rhythm Normal ECG When compared with ECG of 03-OCT-2021 10:14, No significant change was found Referred By: Rhea Jimenez Electronically Signed By:RADHA ALONSO
[2024-02-20 20:09] VITALS: BP 139/88; PULSE 99; RESP 20; TEMP 37.2; O2SAT 99; BMI 42.5
--- NOTE | 2024-02-20 20:09 | ED_ITS ---
HPI - General Adult General Chief complaint: OB Stated complaint: chest pain/headache/high blood pressure Time Seen by Provider: 02/20/24 20:31 Source: patient Mode of arrival: ambulatory Limitations: no limitations History of Present Illness ED Provider: Dr. Debbie Faustin HPI narrative: patient comes to the emergency room complaining of high blood pressure. patient is a at 37 weeks of gestational age. Patient states that she will be induced 1 week prior to her due date due to gestational diabetes and also due to blood pressure issues. Patient states that she has been having high blood pressure intermittently, not on any BP meds. Patient states that earlier today she had a headache and has been present since then. Patient states that earlier today her blood pressure at home was 160s systolic. Patient has checked it several times. Besides headache, patient also reporting chest pressure. Patient denies abdominal pain, no vaginal bleeding. Related Data Previous Rx's ?Medication ?Instructions ?Recorded cromolyn 4 % eye drops 1 drp ophthalmic (eye) QID #10 mL 10/18/20 naphazoline-hypromellose 0.03 1 drp ophthalmic (eye) QID PRN eye 10/18/20 %-0.5 % eye drops irritation #15 mL cyclobenzaprine 10 mg tablet 10 mg PO TID #10 tabs 03/08/21 naproxen 500 mg tablet (Naprosyn) 500 mg PO BID #20 tabs 03/08/21 ondansetron 4 mg disintegrating 4 mg PO Q8H PRN nausea and 04/04/21 tablet vomiting #20 tabs cephalexin 500 mg capsule 500 mg PO BID 7 days #14 caps 08/01/21 naproxen 500 mg tablet,delayed 500 mg PO BID PRN pain #14 tabs 10/03/21 release cetirizine 10 mg tablet (Zyrtec) 10 mg PO DAILY #14 tabs 09/30/22 olopatadine 0.1 % eye drops 1 drp ophthalmic (eye) BID #5 mL 09/30/22 (Pataday Twice Daily Relief) polymyxin B sulfate 10,000 1 drp ophthalmic (eye) QID 7 days 10/07/22 unit-trimethoprim 1 mg/mL eye #10 mL drops (Polytrim) Allergies Allergy/AdvReac Type Severity Reaction Status Date / Time bee pollen [BEE STINGS] Allergy Severe THROAT Verified 02/20/24 20:12 CLOSES Review of Systems 2 Review of Systems: Constitutional : No Weight loss, No Fever, No Chills, No Night Sweats, No Fatigue, No Malaise ENT/Mouth : No Hearing loss, No Ear Pain, No Nasal Congestion, No Sinus Pain, No Hoarseness, No sore throat, No Rhinorrhea, No Swallowing Difficulty Eyes: No Eye Pain, No Swelling, No Redness, No Foreign Body, No Discharge, No Vision Changes Cardiovascular : Complaining of chest pressure,No Chest Pain, No SOB, No Dyspnea on Exertion, No Orthopnea, No Edema, No Palpitations , complaining of intermittently high blood pressure. Respiratory : No Cough, No Sputum, No Wheezing, No Smoke Exposure, No Dyspnea Gastrointestinal : No Nausea, No Vomiting, No Diarrhea, No Constipation, No abdominal Pain, No Hematochezia, No Melena Genitourinary : no vaginal bleeding, reports good movement, No Dysuria, No Urinary Frequency, No Hematuria, No Urinary Incontinence, No Urgency, No Flank Pain, No Urinary Flow Changes, No Hesitancy Musculoskeletal : No joint pain, No Myalgias, No Joint Swelling Skin : No Skin Lesions, No rash Neuro : No Weakness, No Numbness, No Paresthesias, No Loss of Consciousness, No Dizziness, complaining of Headache Psych : No Anxiety/Panic, No Depression, No SI/HI/AH/VH, No Social Issues, Heme/Lymph: No Bruising, No Bleeding,No Lymphadenopathy Endocrine : No Polyuria, No Polydipsia, No Temperature Intolerance PMFSH Past Medical History Medical History Preeclampsia Dysmenorrhea No known health problems Social History Social History Alcohol intake: never Patient Tobacco Use Status: Never used Tobacco Advance Directives: No Advance Directives Information Provided: No Physical Exam ED Vital Signs: Vital Signs - 24 hr 02/20/24 20:09 02/20/24 20:37 02/20/24 21:00 Temperature 98.9 F 97.8 F Pulse Rate 99 108 H 99 Respiratory Rate 20 20 17 Blood Pressure 139/88 129/73 106/46 L Pulse Oximetry 99 98 Oxygen Delivery Method Room Air Room Air 02/20/24 21:39 02/20/24 22:26 Temperature Pulse Rate 90 96 Respiratory Rate 20 20 Blood Pressure 115/65 133/80 Pulse Oximetry 99 Oxygen Delivery Method Room Air BMI result Body Mass Index 42.5 Const Other: Appearance: Alert. Oriented X3. No acute distress. Eyes: Pupils equal, round and reactive to light. ENT: Pharynx normal. Neck: Normal inspection. Neck supple. No lymph nodes noted. No crepitus CVS: Normal heart rate and rhythm. Pulses normal. Normal S1 and S2 Respiratory: No respiratory distress. Breath sounds normal. No Wheezing. No rales Abdomen: Soft and nontender. No rigidity. No distention. Bedside ultrasound shows a heart rate of 130, good movement Skin: Skin warm and dry. Normal skin color. Normal skin turgor. Extremities: No lower extremity edema. No Lacerations. No Rash Neuro: Oriented X 3. No motor deficit. No sensory deficit. Moving all extremities. No slurred speech. CN 2 through 12 grossly intact Psych: calm, cooperative, normal affect Course Course Course Narrative: This is a rapid medical exam performed by Bony Jimenez NP: Additional HPI, ROS, PE not included below will be deferred to primary provider. Patient is a 23-year-old 37EDD 03/08 but is being induced on 03/02 due to blood pressure presenting with headache and chest pain since yesterday. Checked blood pressure readings at home, 136/91, then 160/96. BP in triage 139/88. Denies any vaginal bleeding, still feeling movement. LEAD CASTER is through [facility]. Plan: EKG, labs, UA Medications Administered Generic Name Dose Route Start Last Admin Trade Name Freq PRN Reason Stop Dose Admin Magnesium Sulfate 4 gm in 50 mls @ 150 mls/hr 02/20/24 22:15 02/20/24 22:25 Magnesium Sulfate/H2o IV 02/20/24 22:34 150 mls/hr ONCE ONE Administration Medical Decision Making Medical Decision Making [facility] Narrative: my interpretation of labs, no significant abnormality in the hematology, hemoglobin slightly low at 11.6. patient's LFTs are concerned only a bit elevated. T bili and D bili are normal, 0.3 and 0.1 respectively. AST 32, ALT 98, alk-phos 185, lactate dehydrogenase 186. - I discussed the patient with Dr. Marcial. Patient will likely need to be induced tonight, patient likely starting to develop helps syndrome versus preeclampsia - at this time, patient's blood pressure 115 systolic. States her headache is a bit better. - I discussed the patient with [facility] OBGYN resident on-call, patient needs to be transferred. Recommendations: magnesium 4 mg push over 20 minutes, then 2 mg of magnesium per hour continuous. Patient to be transferred immediately. Upon arrival to [facility], patient will be induced. - I discussed the above-mentioned with the patient, patient agrees with plan - at this time, 22:35, patient's urinalysis returned. Patient has a UTI. Patient will be given IV ceftriaxone. Differential Diagnosis Differential Diagnoses: The differential diagnosis associated with the presentation includes ( HELLP syndrome, preeclampsia) Admission/Observation Consideration of admission/observation: Escalation of care including admission/observation considered ( patient needs to be transferred) Consult Healthcare Provider Management of the patient was discussed with: [employer] Lab Data [facility] Lab Attestation statement: I reviewed the patient's lab results. 02/20/24 20:44 02/20/24 20:44 Labs: Lab Results 02/20/24 Range/Units 20:44 WBC 10.1 (4.8-10.8) X10*3/uL RBC 3.94 L (4.20-5.50) X10*6/uL Hgb 11.6 L (12.0-16.0) g/dl Hct 33.9 L (37.0-47.0) % MCV 86.0 (80.0-98.0) fL MCH 29.4 (27.0-33.0) pg MCHC 34.2 (31.0-35.0) g/dl RDW 12.8 (11.0-16.0) % Plt Count 314 (160-400) X10*3/uL MPV 10.4 (9.4-12.3) fL Immature Gran % (Auto) 0.5 H (0.0-0.4) % Neut % (Auto) 77.2 H (45-73) % Lymph % (Auto) 16.1 L (20-40) % [place] % (Auto) 5.2 (2-11) % Eos % (Auto) 0.8 (0-4) % Baso % (Auto) 0.2 (0-2) % Lymph # (Auto) 1.6 (1.2-4.9) X10*3/uL [place] # (Auto) 0.5 (0.1-1.2) X10*3/uL Eos # (Auto) 0.1 (0.0-0.4) X10*3/uL Baso # (Auto) 0.0 (0.0-0.2) X10*3/uL Abs Immat Gran (auto) 0.05 H (0.00-0.03) X10*3/uL Absolute Neuts (auto) 7.8 (2.0-8.3) x10*3/uL Absolute Nucleated RBC 0.000 (0.0-0.012) X10*3/uL Nucleated RBC % (auto) 0.0 (0.0-0.2) /100WBC PT 10.5 L (11.1-13.3) SEC INR 0.9 (0.9-1.1) Sodium 138 (135-145) mmol/L Potassium 3.6 (3.3-5.1) mmol/L Chloride 110 H (96-108) mmol/L Carbon Dioxide 20 L (22-29) mmol/L Anion Gap 12 (12-20) BUN 8 L (9-16) mg/dL Creatinine 0.65 (0.5-1.4) mg/dL Estim Creat Clear Calc 160.7 Estimated GFR > 60 Random Glucose 121 H (60-115) mg/dL Uric Acid 4.1 (2.4-5.7) mg/dL Calcium 9.2 (8.4-10.2) mg/dL Magnesium 1.7 (1.6-2.6) mg/dL Total Bilirubin 0.3 (0.0-1.0) mg/dL Direct Bilirubin 0.1 (0.0-0.5) mg/dL AST 32 H (5-31) U/L ALT 98 H (0-31) U/L Alkaline Phosphatase 185 H (39-117) U/L Lactate Dehydrogenase 186 (122-220) U/L Troponin I High Sens < 2.7 (<3.5-17.0) ng/L Total Protein 7.2 (6.5-8.0) g/dL Albumin 3.2 L (3.5-5.0) g/dL Urine Color Yellow Urine Appearance Cloudy Urine pH 6.5 (5.0-9.0) Ur Specific [place] >= 1.030 H (1.005-1.025) Urine Protein Trace (Neg-Trace) mg/dL Urine Glucose (UA) Negative (Negative) mg/dL Urine Ketones Negative (Negative) mg/dL Urine Blood Negative (Negative) Urine Nitrite Negative (Negative) Ur Leukocyte Esterase Moderate (2+) H (Negative) Urine RBC 3-5 H (0-2) /HPF Urine WBC 21-50 H (0-5) /HPF Ur Squamous Epith Cells 11-20 (0-2) /HPF Urine Bacteria 3+ (None Seen) Hyaline Casts 0-2 (0-2) /LPF Critical Care Time Critical Care Time Critical Care Time: Yes Total Critical Care Time: 60 Attestation: I have personally provided critical care time. Time includes review of lab data, radiology results, discussion with consultants, and monitoring for potential decompensation. Intervention performed as documented. Discharge Plan Discharge Clinical Impression: Pre-eclampsia, 37 weeks gestation of , UTI (urinary tract infection) Patient Disposition: [facility] Transfer Details: [facility] directly to floor Prescriptions: No Action naphazoline-hypromellose 0.03-0.5 % drops 1 drp ophthalmic (eye) QID PRN (Reason: eye irritation) Qty: 15 0RF cromolyn 4 % drops 1 drp ophthalmic (eye) QID Qty: 10 0RF cyclobenzaprine 10 mg tablet 10 mg PO TID Qty: 10 0RF naproxen [Naprosyn] 500 mg tablet 500 mg PO BID Qty: 20 0RF cephalexin 500 mg capsule 500 mg PO BID 7 Days Qty: 14 0RF naproxen 500 mg tablet,delayed release (DR/EC) 500 mg PO BID PRN (Reason: pain) Qty: 14 0RF ondansetron 4 mg tablet,disintegrating 4 mg PO Q8H PRN (Reason: nausea and vomiting) Qty: 20 0RF olopatadine [Pataday Twice Daily Relief] 0.1 % drops 1 drp ophthalmic (eye) BID Qty: 5 0RF Rx Instructions: separate doses by at least 6-8 hours cetirizine [Zyrtec] 10 mg tablet 10 mg PO DAILY Qty: 14 0RF polymyxin B sulf-trimethoprim [Polytrim] 10,000 unit- 1 mg/mL drops 1 drp ophthalmic (eye) QID 7 Days Qty: 10 0RF Rx Instructions: while awake; do not exceed 6 doses in 24 hours Print Language: Dominican
[2024-02-20 20:37] VITALS: BP 129/73; PULSE 108; RESP 20; TEMP 36.6; O2SAT 98
--- NOTE | 2024-02-20 20:48 | MHC.EDTECH ---
This Tech assumed care of this pt upon arrival. pt changed over into a hospital gown a placed on a cardiac specialist. Bloodwork and urine sent to the lab for processing
[2024-02-20 20:49] LABS: MANUAL DIFF FLAG NO
[2024-02-20 20:54] LABS: Basophils Percent Auto 0.2 % (0-2); Eosinophils Absolute Auto 0.1 X10*3/uL (0.0-0.4); Eosinophils Percent Auto 0.8 % (0-4); Hematocrit 33.9 % (37.0-47.0); Hemoglobin 11.6 g/dl (12.0-16.0); Imm Gran Abs Auto 0.05 X10*3/uL (0.00-0.03); Imm Gran Pct Auto 0.5 % (0.0-0.4); Lymphocytes Absolute Auto 1.6 X10*3/uL (1.2-4.9); Lymphocytes Percent Auto 16.1 % (20-40); Mean Corpuscular HGB Conc 34.2 g/dl (31.0-35.0); Mean Corpuscular Hemoglobin 29.4 pg (27.0-33.0); Mean Platelet Volume 10.4 fL (9.4-12.3); Monocytes Absolute Auto 0.5 X10*3/uL (0.1-1.2); Monocytes Percent Auto 5.2 % (2-11); Neutrophils Absolute Auto 7.8 x10*3/uL (2.0-8.3); Neutrophils Percent Auto 77.2 % (45-73); Platelet Count 314 X10*3/uL (160-400); Red Blood Count 3.94 X10*6/uL (4.20-5.50); Red Cell Distribution Width 12.8 % (11.0-16.0); White Blood Count 10.1 X10*3/uL (4.8-10.8)
[2024-02-20 21:00] VITALS: BP 106/46; PULSE 99; RESP 17
[2024-02-20 21:08] LABS: Magnesium 1.7 mg/dL (1.6-2.6)
[2024-02-20 21:15] LABS: INTERNATIONAL NORM RATIO 0.9 (0.9-1.1); Prothrombin Time 10.5 SEC (11.1-13.3)
[2024-02-20 21:16] LABS: Appearance Urine Cloudy; Color Urine Yellow; Glucose Urine UA Negative (Negative); Leukocyte Esterase Urine Moderate (2+) (Negative); Nitrite Urine Negative (Negative); PH 6.5 (5.0-9.0); Specific Gravity - Urine >= 1.030 (1.005-1.025); UMIC TRIGGER UACC YES; Urine Blood Negative (Negative); Urine Ketones Negative (Negative); Urine Protein Trace mg/dL (Neg-Trace)
[2024-02-20 21:18] LABS: Alanine Aminotransferase 98 U/L (0-31); Albumin Level 3.2 g/dL (3.5-5.0); Alkaline Phosphatase 185 U/L (39-117); Anion Gap 12 (12-20); Aspartate Amino Transferase 32 U/L (5-31); Bilirubin Direct 0.1 mg/dL (0.0-0.5); Bilirubin Total 0.3 mg/dL (0.0-1.0); Blood Urea Nitrogen 8 mg/dL (9-16); Calcium 9.2 mg/dL (8.4-10.2); Carbon Dioxide 20 mmol/L (22-29); Chloride 110 mmol/L (96-108); Creatinine Clr Calc Pharmacy 160.7; Estimated Glomerular Filt Rate > 60; Glucose Random 121 mg/dL (60-115); Potassium 3.6 mmol/L (3.3-5.1); Sodium 138 mmol/L (135-145); Total Protein 7.2 g/dL (6.5-8.0); Troponin-I High Sensitivity < 2.7 ng/L (<3.5-17.0); Uric Acid 4.1 mg/dL (2.4-5.7)
[2024-02-20 21:31] LABS: Bacteria Urine 3+ (None Seen); Hyaline Casts Urine 0-2 /LPF (0-2); UACC Culture Trigger YES; WBC Urine 21-50 /HPF (0-5)
[2024-02-20 21:39] VITALS: BP 115/65; PULSE 90; RESP 20
--- NOTE | 2024-02-20 21:55 | PM.OBCN ---
OB Consult Note - [facility] Data Service Date: 02/20/24 Primary Care Provider: [facility] Narrative I was consulted at 21:48 on Olga Costello who is a 23 year old female patient presented to the emergency room complaining of elevated blood pressure. The patient is a at 37 weeks of gestational age scheduled for induction at 39 weeks for gestational diabetes and hypertensive disorders in according to the patient. Patient states that earlier today she had a headache, her blood pressure was in the 160 systolic. Patient denies any abdominal pain, leakage of fluid or bleeding. Reports good movements, no abdominal cramping. OB [facility] Past Medical History Medical History Preeclampsia Dysmenorrhea No known health problems Social History Social History Alcohol intake: never Patient Tobacco Use Status: Never used Tobacco Advance Directives: No Advance Directives Information Provided: No Meds Allergies Allergy/AdvReac Type Severity Reaction Status Date / Time bee pollen [BEE STINGS] Allergy Severe THROAT Verified 02/20/24 20:12 CLOSES OB Physical Exam Physical Exam Additional Comments: The following is reported by Dr. Faustin: heart rate at 130 beats per minute Abdominal exam : Soft with no epigastric or upper right quadrant tenderness No extremity +2 DTRs, + 2 edema OB Consult Results Labs 02/20/24 20:44 02/20/24 20:44 Labs: Short CBC 02/20/24 Range/Units 20:44 WBC 10.1 (4.8-10.8) X10*3/uL Hgb 11.6 L (12.0-16.0) g/dl Hct 33.9 L (37.0-47.0) % Plt Count 314 (160-400) X10*3/uL BMP 02/20/24 20:44 Sodium 138 Potassium 3.6 Chloride 110 H Carbon Dioxide 20 L BUN 8 L Creatinine 0.65 Calcium 9.2 Liver Function 02/20/24 Range/Units 20:44 Total Bilirubin 0.3 (0.0-1.0) mg/dL Direct Bilirubin 0.1 (0.0-0.5) mg/dL AST 32 H (5-31) U/L ALT 98 H (0-31) U/L Alkaline Phosphatase 185 H (39-117) U/L Albumin 3.2 L (3.5-5.0) g/dL Urine 02/20/24 Range/Units 20:44 Urine Color Yellow Urine Appearance Cloudy Urine pH 6.5 (5.0-9.0) Ur Specific [place] >= 1.030 H (1.005-1.025) Urine Protein Trace (Neg-Trace) mg/dL Urine Glucose (UA) Negative (Negative) mg/dL OB - CN: A/P Assessment and Plan (1) 37 weeks gestation of : Status: Acute Assessment and Plan: Discussed the following with Dr. Faustin: With the patient History of gestational hypertension and reported elevated blood pressure at home in the 160s in the severe range, elevated liver function tests, although blood pressure was within normal in the emergency room, diagnosis is for preeclampsia with severe features, recommend transfer to [facility] ; magnesium sulfate IV 4 g loading dose over 20 minutes followed by 2 g/ hour, total fluid input less than 120 cc an hour, insert Basilio, I/O. Blood pressure monitoring q 15' with the following BP goal: Systolic blood pressure less than 160 and/or diastolic pressure less than 110, any blood pressure reading in the severe is to be treated with IV hydralazine or labetalol per protocol for emergency hypertensive treatment in . I spent a total of 20 minutes reviewing the chart, communicating the emergency room provider and documenting in the medical record Time Spent With Patient Time: Total time managing care of this patient today ____ minutes.
[2024-02-20 22:16] LABS: Lactate Dehydrogenase 186 U/L (122-220)
[2024-02-20] MEDS: Magnesium Sulfate/H2O 4 GM/50 ML PIGGYBACK IV (22:25)
[2024-02-20 22:26] VITALS: BP 133/80; PULSE 96; RESP 20; O2SAT 99
[2024-02-20] MEDS: cefTRIAXone sodium 1 GM in 0.9 % Sodium Chloride 50 ML IV (22:51)
--- NOTE | 2024-02-21 00:02 | PC.NURSE ---
magnesium infusion started per aug. iv established, iv abx infusing. ems at bedside for transfer report given to RN at [facility]. nad at time of d/c bp wnl pt denies n/v/abd pain, reports consistent NATHAN 10/11 no changes. is pleasant and verbalizes excitement. d/c with hussain.
== END 2024-02-20 22:46 | disposition short-term general hospital (02) ==
PROVIDERS: Emergency Medicine; Registered Nurse Emergency; Emergency Provider Emergency Medicine; Referring Provider Nurse Practitioner Family
DX: O14.93 Unspecified pre-eclampsia, third trimester (principal); O23.43 Unspecified infection of urinary tract in pregnancy, third trimester; N39.0 Urinary tract infection, site not specified; R07.89 Other chest pain; Z3A.37 37 weeks gestation of pregnancy; Z79.899 Other long term (current) drug therapy
CPT/HCPCS: 36415; 80048; 80076; 81001; 81003; 83615; 83735; 84484; 84550; 85025; 85610; 87086; 93005; 96365; 96375; 99284; 99285; J0696; J3475

== ENCOUNTER → 2024-02-20 20:33 | Outpatient (BNV) | payer MEDICAID, SELFPAY | PROVIDERS: Emergency Provider Emergency Medicine; Visit Provider Obstetrics & Gynecology | DX: Z3A.37 37 weeks gestation of pregnancy (principal) | CPT/HCPCS: 99283 ==

== ENCOUNTER 2024-06-13 08:36 | Outpatient (REF) | payer MEDICAID, SELFPAY ==
--- NOTE | ~2024-06-13 | US_ITS ---
EXAMINATION: US DIAGNOSTIC ULTRASOUND BREAST, LEFT CLINICAL INFORMATION: . 24-year-old female with left breast painful lump at the area over for one month. Strong family history of breast cancer including mother in her 30s and aunt and great grandmother. Patient is currently breast-feeding. COMPARISON: Comparison is made with relevant prior imaging. TECHNIQUE: Ultrasound of the breast is performed with real-time mendenhall scale imaging and color Doppler. FINDINGS: Targeted color Doppler ultrasound scanning in the area the patient's palpable lump in the lower inner quadrant 8:00 at the area O demonstrates an intradermal hypoechoic area which could represent a sebaceous cyst/epidermal inclusion cyst versus no Banuelos tubercle measuring 7 x 4 x 11 mm. There is minimal surrounding flow. Results are discussed with the patient at time of visit. US/US breast LT limited mamm only IMPRESSION: Recommend breast surgical consultation for painful lump in the left area over with imaging consistent with a intradermal hypoechoic mass epidermal inclusion cyst sebaceous cyst Banuelos tubercle. Patient has a strong family history of breast cancer. Breast MRI at age 26 should be considered and would need to be ordered by the patient's providing clinician. ASSESSMENT: BI-RADS 2: Benign RECOMMENDATION: 1. Patient should be managed based on the clinical impression. Decision to proceed with biopsy should be based on clinical grounds and degree of clinical concern. This patient's information was entered into a reminder system with a target due date for their next mammogram. Electronically signed by: Shobha Pollock DO 06/13/2024 09:25 AM [place]
== END 2024-06-13 08:37 | disposition home or self-care (01) ==
LOC: HO.MAMMO 08:36
PROVIDERS: PCP Nurse Practitioner; Visit Provider Nurse Practitioner
DX: N63.24 Unspecified lump in the left breast, lower inner quadrant (principal)
CPT/HCPCS: 76642

== ENCOUNTER → 2024-06-13 08:45 | Outpatient (BNV) | payer MEDICAID, SELFPAY | PROVIDERS: PCP Nurse Practitioner; Visit Provider Internal Medicine | DX: R22.32 Localized swelling, mass and lump, left upper limb (principal); Z80.3 Family history of malignant neoplasm of breast | CPT/HCPCS: 76642 ==

== ENCOUNTER 2024-08-25 07:37 | Emergency (ER) | payer OTHER, SELFPAY ==
--- NOTE | ~2024-08-25 | XR_ITS ---
EXAMINATION: XR ANKLE, RIGHT CLINICAL INFORMATION: pain COMPARISON: None available. TECHNIQUE: AP, lateral, and mortise views of the right ankle. FINDINGS: No acute cortical disruption or malalignment. No gross joint effusion. No subcutaneous emphysema. No metallic or radiopaque foreign body. Small exostosis at the Achilles tendon insertion suggesting enthesopathy.. XR/XR ankle RT min 3V IMPRESSION: No acute fracture or dislocation. Electronically signed by: Cristhian Caba MD 08/25/2024 08:42 AM EDT
--- NOTE | ~2024-08-25 | XR_ITS ---
EXAMINATION: XR FOOT, RIGHT CLINICAL INFORMATION: twisted down stairs COMPARISON: None available. TECHNIQUE: AP, lateral, and oblique views of the right foot. FINDINGS: Metatarsals are intact. Phalanges of the toes are intact. Tarsal bones, tarsal navicular, calcaneus and talus are intact. No metallic or radiopaque foreign body. No subcutaneous emphysema. Small exostosis at the Achilles tendon insertion suggesting mild enthesopathy. XR/XR foot RT min 3V IMPRESSION: No acute fracture or dislocation. Electronically signed by: Cristhian Caba MD 08/25/2024 10:16 AM EDT
[2024-08-25 08:19] VITALS: BP 136/70; PULSE 92; RESP 18; TEMP 36.7; O2SAT 99; BMI 40.6
--- NOTE | 2024-08-25 09:37 | ED.LOWEXIN ---
HPI - Extremity Injury (Lower) General Chief Complaint: Extremity Injury, Lower Stated Complaint: r ankle inj Time Seen by Provider: 08/25/24 09:37 Source: patient, RN notes reviewed and old records reviewed Mode of arrival: ambulatory History of Present Illness ED Provider: Jelena Diaz PA-C HPI Narrative: 24-year-old female with a past medical history of preeclampsia, dysmenorrhea, presenting to the ED complaining of right ankle pain and swelling s/p mechanical trip & fall while walking down the stairs this morning. States twisted ankle on last step, denies falling all the way to ground, head trauma or LOC. Denies numbness, tingling, weakness, injury to the area. Related Data Previous Rx's ?Medication ?Instructions ?Recorded cromolyn 4 % eye drops 1 drp ophthalmic (eye) QID #10 mL 10/18/20 naphazoline-hypromellose 0.03 1 drp ophthalmic (eye) QID PRN eye 10/18/20 %-0.5 % eye drops irritation #15 mL cyclobenzaprine 10 mg tablet 10 mg PO TID #10 tabs 03/08/21 naproxen 500 mg tablet (Naprosyn) 500 mg PO BID #20 tabs 03/08/21 ondansetron 4 mg disintegrating 4 mg PO Q8H PRN nausea and 04/04/21 tablet vomiting #20 tabs cephalexin 500 mg capsule 500 mg PO BID 7 days #14 caps 08/01/21 naproxen 500 mg tablet,delayed 500 mg PO BID PRN pain #14 tabs 10/03/21 release cetirizine 10 mg tablet (Zyrtec) 10 mg PO DAILY #14 tabs 09/30/22 olopatadine 0.1 % eye drops 1 drp ophthalmic (eye) BID #5 mL 09/30/22 (Pataday Twice Daily Relief) polymyxin B sulfate 10,000 1 drp ophthalmic (eye) QID 7 days 10/07/22 unit-trimethoprim 1 mg/mL eye #10 mL drops (Polytrim) Allergies Allergy/AdvReac Type Severity Reaction Status Date / Time bee pollen [BEE STINGS] Allergy Severe THROAT Verified 08/25/24 08:20 CLOSES Review of Systems Review of Systems: Yes all other systems are reviewed and are negative Constitutional: Constitutional: Reports as per HPI PMFSH Past Medical History Attestation statement: The following information was validated with the patient. Source: old records reviewed Medical History Preeclampsia Dysmenorrhea No known health problems Social History Social History Alcohol intake: never Patient Tobacco Use Status: Never used Tobacco Advance Directives: Yes Advance Directives Information Provided: Yes Advance Directives on File: No Do you have a plan to hurt others: No Plan Physical Exam Vital Signs: Vital Signs: Last Vital Signs Temp 98.1 F 08/25/24 11:49 Pulse 92 08/25/24 11:49 Resp 18 08/25/24 11:49 BP 136/70 08/25/24 11:49 Pulse Ox 99 08/25/24 11:49 O2 Del Method Room Air 08/25/24 11:49 BMI result Body Mass Index 40.6 Const: General: cooperative, healthy appearing and no acute distress Orientation/consciousness: patient oriented x3 Limitations: no limitations HEENT: Head: Yes normal to inspection and Yes atraumatic Ears: hearing grossly normal bilaterally General nose exam: Normal external nose present Face and sinus: Yes normal facial exam Eyes: General: appearance normal, both eyes and all related structures EOM: EOMs intact bilaterally Neck: Neck: Yes normal visual inspection and Yes no meningeal signs Resp: Effort & Inspection: normal respiratory effort and no respiratory distress Cardio: Rate: regular rate Skin: Rashes: no rashes Wounds: no wounds Neuro: General: patient oriented x3, tone normal and no meningeal signs Cranial nerves: Yes CN's II-XII intact bilaterally Gait exam (Neuro): Normal gait present Extrem: Other: right ankle/foot with appreciable swelling & +ttp > medial aspect. No erythema or warmth. NV intact Course Course Course Narrative: XR ankle RT min 3V IMPRESSION: No acute fracture or dislocation. XR foot RT min 3V IMPRESSION: No acute fracture or dislocation. > air cast & crutches applied Results discussed with patient including worrisome signs and symptoms and strict return precautions, and when to return to the emergency department. They verbalized understanding and feel safe for discharge at this time. Medical Decision Making Medical Decision Making MDM Narrative: 24-year-old female with a past medical history of preeclampsia, dysmenorrhea, presenting to the ED complaining of right ankle pain and swelling s/p mechanical trip & fall while walking down the stairs this morning. On exam VSS, NAD, nontoxic appearing, physical exam as noted above. Concern for fracture vs sprain. No evidence of septic joint/arthritis. Unlikely DVT Plan: X-ray Please refer to course for remaining clinical decision making, interpretation of labs/imaging results, and discussions with consultants and/or family members. Differential Diagnosis Differential Diagnoses: The differential diagnosis associated with the presentation includes As above Independent Interpretation I performed an independent interpretation of an: Plain X-Ray Radiology Impression Discussion of test interpretation with radiology: I have reviewed the radiologist's reading. External Record Review External record reviewed: Inpatient record, Office record, Outpatient record, Prior outpatient labs, Prior outpatient radiology, Primary care record and Outside ED record Tests considered The following testing was considered but not selected: As above Prescription Management I considered prescription management with: Pain Medication Chronic Conditions Patient?s care impacted by: Other Social Determinants Patient?s care significantly limited by Social Determinants of Health including: Other Social Determinant of Health Discharge Plan Discharge Clinical Impression: Ankle sprain Patient Disposition: Home, Self-Care Instructions: Ankle Sprain (DC) Additional Instructions: your x-rays are unremarkable you sprained your ankle/foot Wear Aircast and use crutches as needed Ice and elevate Take Tylenol and ibuprofen for pain Follow up with your doctor Prescriptions: No Action naphazoline-hypromellose 0.03-0.5 % drops 1 drp ophthalmic (eye) QID PRN (Reason: eye irritation) Qty: 15 0RF cromolyn 4 % drops 1 drp ophthalmic (eye) QID Qty: 10 0RF cyclobenzaprine 10 mg tablet 10 mg PO TID Qty: 10 0RF naproxen [Naprosyn] 500 mg tablet 500 mg PO BID Qty: 20 0RF cephalexin 500 mg capsule 500 mg PO BID 7 Days Qty: 14 0RF naproxen 500 mg tablet,delayed release (DR/EC) 500 mg PO BID PRN (Reason: pain) Qty: 14 0RF ondansetron 4 mg tablet,disintegrating 4 mg PO Q8H PRN (Reason: nausea and vomiting) Qty: 20 0RF olopatadine [Pataday Twice Daily Relief] 0.1 % drops 1 drp ophthalmic (eye) BID Qty: 5 0RF Rx Instructions: separate doses by at least 6-8 hours cetirizine [Zyrtec] 10 mg tablet 10 mg PO DAILY Qty: 14 0RF polymyxin B sulf-trimethoprim [Polytrim] 10,000 unit- 1 mg/mL drops 1 drp ophthalmic (eye) QID 7 Days Qty: 10 0RF Rx Instructions: while awake; do not exceed 6 doses in 24 hours Referrals: Sabra Lambert [Primary Care Provider] - 1 week Stand Alone Forms: Work/School Release Interventions: ED Discharge Assessment Last Done: 08/25/24 11:49 Discharge Date/Time: 08/25/24 11:49 Print Language: Romansh
[2024-08-25 11:49] VITALS: BP 136/70; PULSE 92; RESP 18; TEMP 36.7; O2SAT 99
== END 2024-08-25 11:49 | disposition home or self-care (01) ==
PROVIDERS: Emergency Provider Emergency Medicine Emergency Medical Services; PCP Nurse Practitioner
DX: S93.401A Sprain of unspecified ligament of right ankle, initial encounter (principal); M25.571 Pain in right ankle and joints of right foot; W10.9XXA Fall (on) (from) unspecified stairs and steps, initial encounter; Y93.9 Activity, unspecified; Y92.89 Other specified places as the place of occurrence of the external cause; Y99.8 Other external cause status
CPT/HCPCS: 73610; 73630; 99282; 99283

== ENCOUNTER → 2024-08-25 08:30 | Outpatient (BNV) | payer SELFPAY | PROVIDERS: PCP Nurse Practitioner; Visit Provider Radiology Diagnostic Radiology | DX: M25.572 Pain in left ankle and joints of left foot (principal) | CPT/HCPCS: 73610; 73630 ==